=== PATIENT | male | born 1940 | race Caucasian/White ===

== ENCOUNTER → 2017-12-19 | Outpatient (CLI) | payer MEDICARE, OTHER ==
[~2017-12-19] MED LIST: ASPI81TA86 PO; ATOR40TA24 PO; ATR10 PO; AZIT500T47 PO; CA C1TAB85 PO; CETI-176 PO; CHOL100058 PO; CHOL200021 PO; ERG400 PO; FISH OIL1 CAP PO; FURO-45 PO; IBUP200C71 PO; LISI-349 PO; LISI-362 PO; LISI20TA29 PO; LOVA20TA99 PO; LOVA40TA89 PO; MECL-111 PO; MECL25TA9 PO; PANT40TA65 PO; PNEU0.5D3 IM; TAM4 PO; TAMS0.4C70 PO; TRIA10.8; UBID100C9 PO; VITA150T2 PO; VITA1CAP46 PO
== END ==
LOC: PT 10:30
PROVIDERS: ATTEND Emergency Medicine
DX: H90.3 Sensorineural hearing loss, bilateral (principal)
CPT/HCPCS: 92553

== ENCOUNTER → 2018-03-06 | Outpatient (CLI) | payer MEDICARE, OTHER ==
[~2018-03-06] MED LIST changes: +AMLO-96 PO; +IBUP-136 PO; -IBUP200C71 PO; +LISI-374 PO
== END ==
LOC: LAB 08:42
PROVIDERS: ATTEND Emergency Medicine
DX: I10 Essential (primary) hypertension (principal)
CPT/HCPCS: 36415; 82310; 82374; 82435; 82565; 82947; 84132; 84295; 84520

== ENCOUNTER 2018-04-28 09:50 | Emergency (ER) | payer MEDICARE, OTHER ==
--- NOTE | 2018-04-28 09:53 | ER Report ---
History and Physical Time Seen By : 09:53 HPI/ROS This is an 78-year-old male with a history of hypertension and hyperlipidemia. He was in his usual state of health until 0 9:15 this morning. He had eaten breakfast with his without issues, and as they finished her breakfast the patient seem to have problems using his right hand and arm. At that time his asked him to raise both his arms, and he could not raise his right arm. His describes shortly after the problems with his arms started, he "slumped over" the table and seem to have a brief period of confusion. When paramedics arrived he was unable to use his right arm. There were no other neurologic deficits according to the patient, his , and the paramedics. The weakness in his right arm did slightly improve in about to the emergency department. He went directly to the CT scan for stroke protocol. In the CT scanner, he had an approximate 60 seconds of expressive aphasia. He only had one episode of a facial. He continues to complain of weakness in his right arm and hand, but states it is improving. 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 He denies any chest pain or headache at the time of the incident or now. Remainder of the 14 system rev: Yes Allergies: Coded Allergies: No Known Drug Allergies (Verified , 01/13/18) verified by pt 01/13/2018 Home Meds Active Scripts Amlodipine Besylate (AMLODIPINE BESYLATE) 5 Mg Tablet, 1 TAB PO DAILY, #90 TAB 3 Refills Prov:KARLIE REYES MD 03/08/18 Lovastatin (LOVASTATIN) 40 Mg Tablet, 1 TAB PO QDAY, #90 TAB 4 Refills Prov:KARLIE REYES MD 07/26/17 Tamsulosin Hcl (TAMSULOSIN HCL) 0.4 Mg Cap.er.24h, 1 CAP PO DAILY, #90 TAB 3 Refills Prov:KARLIE REYES MD 07/26/17 Reported Medications Lisinopril (LISINOPRIL) 20 Mg Tablet, 20 MG PO QDAY, TAB 04/28/18 Cetirizine Hcl (ZYRTEC) 10 Mg Tablet, 1 TAB PO HS, TAB 01/13/18 Cholecalciferol (Vitamin D3) (VITAMIN D) 1,000 Unit Capsule, 1 CAP PO DAILY, CAPSULE 10/19/16 Aspirin (ASPIRIN EC) 81 Mg Tablet.dr, 1 TAB PO QDAY, TAB 08/04/15 Ibuprofen (IBUPROFEN) 200 Mg Capsule, 1 CAP PO Q6H PRN for PAIN, CAPSULE 04/01/14 Discontinued Scripts Lisinopril (LISINOPRIL) 40 Mg Tablet, 40 MG PO QDAY, #90 TAB 3 Refills Prov:ERICKARLIE Winkler MD 03/08/18 Reviewed Nurses Notes: Yes Old Medical Records Reviewed: Yes Hx Smoking: No Smoking Status: Never Smoker Hx Alcohol Use: Yes Constitutional Vital Sign - Last 24 Hours 04/28/18 10:07 Pulse 75 Resp 20 B/P (MAP) 154/68 Pulse Ox 94 O2 Delivery Room Air Physical Exam General Appearance: The patient is alert, has no immediate need for airway protection and no signs of toxicity. Eyes: Pupils equal and round no pallor or injection. ENT, Mouth: Mucous membranes are moist. Respiratory: There are no retractions, lungs are clear to auscultation. Cardiovascular: Regular rate and rhythm. Gastrointestinal: Abdomen is soft and non tender, no masses, bowel sounds normal. Neurological: Normal sensation throughout, 3 out of 5 strength in his right arm and hand. Normal strength other than right arm and hand. No drift. No ataxia. Normal speech. Skin: Warm and dry, no rashes. Neck is supple non tender. Extremities are nontender, nonswollen and have full range of motion. DIFFERENTIAL DIAGNOSIS: After history and physical exam differential diagnosis was considered for weakness including but not limited to electrolyte abnormality, depression, anxiety, CVA, spinal cord abnormality, and infectious causes. Medical Decision Making Data Points Result Diagram: 04/28/18 1005 04/28/18 1036 Laboratory Hematology Test 04/28/18 10:05 04/28/18 10:36 Red Blood Count 4.64 M/uL (4.00-5.60) Mean Corpuscular Volume 95.6 fL (80.0-96.0) Mean Corpuscular Hemoglobin 32.9 pg (26.0-33.0) Mean Corpuscular Hemoglobin Concent 34.4 g/dL (32.0-36.0) Red Cell Distribution Width 13.7 % (11.5-14.5) Mean Platelet Volume 7.5 fL (7.2-11.1) Neutrophils (%) (Auto) 63.3 % (39.4-72.5) Lymphocytes (%) (Auto) 25.4 % (17.6-49.6) Monocytes (%) (Auto) 7.5 % (4.1-12.4) Eosinophils (%) (Auto) 2.8 % (0.4-6.7) Basophils (%) (Auto) 1.0 % (0.3-1.4) Nucleated RBC Relative Count (auto) 0.1 /100WBC Neutrophils # (Auto) 4.2 K/uL (2.0-7.4) Lymphocytes # (Auto) 1.7 K/uL (1.3-3.6) Monocytes # (Auto) 0.5 K/uL (0.3-1.0) Eosinophils # (Auto) 0.2 K/uL (0.0-0.5) Basophils # (Auto) 0.1 K/uL (0.0-0.1) Nucleated RBC Absolute Count (auto) 0.01 K/uL Prothrombin Time 13.9 seconds (12.0-14.4) Prothromb Time International Ratio 1.07 Sodium Level 137 mmol/L (137-145) Potassium Level 4.0 mmol/L (3.5-5.0) Chloride Level 99 mmol/L (98-107) Carbon Dioxide Level 30 mmol/L (22-30) Blood Urea Nitrogen 12 mg/dl (9-21) Creatinine 1.00 mg/dl (0.66-1.25) Glomerular Filtration Rate Calc > 60.0 Random Glucose 126 mg/dl (75-110) Calcium Level 8.9 mg/dl (8.4-10.2) Total Bilirubin 0.5 mg/dl (0.2-1.3) Aspartate Amino Transf (AST/SGOT) 19 U/L (0-35) Alanine Aminotransferase (ALT/SGPT) 26 U/L (0-56) Alkaline Phosphatase 38 U/L (0-126) Total Protein 6.3 g/dl (6.3-8.2) Albumin 4.1 g/dl (3.5-5.0) Chemistry Test 04/28/18 10:05 04/28/18 10:36 White Blood Count 6.7 k/uL (4.5-11.0) Red Blood Count 4.64 M/uL (4.00-5.60) Hemoglobin 15.3 g/dL (14.0-18.0) Hematocrit 44.4 % (42.0-52.0) Mean Corpuscular Volume 95.6 fL (80.0-96.0) Mean Corpuscular Hemoglobin 32.9 pg (26.0-33.0) Mean Corpuscular Hemoglobin Concent 34.4 g/dL (32.0-36.0) Red Cell Distribution Width 13.7 % (11.5-14.5) Platelet Count 316 K/uL (150-450) Mean Platelet Volume 7.5 fL (7.2-11.1) Neutrophils (%) (Auto) 63.3 % (39.4-72.5) Lymphocytes (%) (Auto) 25.4 % (17.6-49.6) Monocytes (%) (Auto) 7.5 % (4.1-12.4) Eosinophils (%) (Auto) 2.8 % (0.4-6.7) Basophils (%) (Auto) 1.0 % (0.3-1.4) Nucleated RBC Relative Count (auto) 0.1 /100WBC Neutrophils # (Auto) 4.2 K/uL (2.0-7.4) Lymphocytes # (Auto) 1.7 K/uL (1.3-3.6) Monocytes # (Auto) 0.5 K/uL (0.3-1.0) Eosinophils # (Auto) 0.2 K/uL (0.0-0.5) Basophils # (Auto) 0.1 K/uL (0.0-0.1) Nucleated RBC Absolute Count (auto) 0.01 K/uL Prothrombin Time 13.9 seconds (12.0-14.4) Prothromb Time International Ratio 1.07 Glomerular Filtration Rate Calc > 60.0 Calcium Level 8.9 mg/dl (8.4-10.2) Total Bilirubin 0.5 mg/dl (0.2-1.3) Aspartate Amino Transf (AST/SGOT) 19 U/L (0-35) Alanine Aminotransferase (ALT/SGPT) 26 U/L (0-56) Alkaline Phosphatase 38 U/L (0-126) Total Protein 6.3 g/dl (6.3-8.2) Albumin 4.1 g/dl (3.5-5.0) Coagulation Test 04/28/18 10:36 Prothrombin Time 13.9 seconds Prothromb Time International Ratio 1.07 EKG/Imaging EKG Interpretation 12 lead EKG: Rhythm: normal sinus rhythm with first-degree AV block Crane: normal QRS: Left bundle-branch block ST segments: Nonspecific changes Imaging Results: CT scan of the head was obtained. The results of the study are no acute findings. The study was read by the radiologist. I viewed the images myself on the PACS system. 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 He presents to the emergency department 45 minutes after he had a sudden onset of right arm and right hand weakness. His witnessed the event. He had no other neurologic deficits at the time. He had a brief episode of expressive aphasia while getting a CT scan of his head which spontaneously resolved. He continued to have weakness in his right arm and specifically in his right hand. He was seen by a neurologist using telemedicine. 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 Neurologist, myself, and the patient think it reasonable, even given the risk benefit of TPA, that he receive TPA order to try to gain normal use of his right hand again. The risks of bleeding were discussed with the patient and his . The patient and his both agreed to the TPA treatment. He was given the TPA. He continues to have deficits in his right hand. He will be transferred to the neuro ICU at [facility]. Decision to Disposition Date: Apr 28, 2018 Decision to Disposition Time: 11:06 Critical Care Time I spent a total of 45 minutes of critical care time in obtaining history, performing a physical exam, bedside monitoring of interventions, collecting and interpreting tests and discussion with consultants but not including time spent performing procedures. Depart Departure Latest Vital Signs Vital Signs Date Time Temp Pulse Resp B/P (MAP) Pulse Ox O2 Delivery O2 Flow Rate FiO2 04/28/18 10:07 75 20 154/68 94 Room Air Impression: Primary Impression: CVA (cerebral vascular accident) Condition: Critical Disposition: XFER TO ACUTE CARE HOSPITAL Referrals: KARLIE REYES MD (PCP) Problem Qualifiers Primary Impression: CVA (cerebral vascular accident) CVA mechanism: unspecified Qualified Codes: I63.9 - Cerebral infarction, unspecified KHLOE JONES MD Apr 28, 2018 09:53
[2018-04-28] MEDS ORDERED: NS(*) 0.9% 1000 ML BAG 1,000 ML IV ONE (10:05)
[2018-04-28 10:14] LABS: PLATELET COUNT, AUTOMATED 316 K/uL (150-450)
[2018-04-28] MEDS ORDERED: LISI20TA29 PO (10:15)
--- NOTE | 2018-04-28 10:19 | RADIOLOGY IMAGING REPORT ---
FACILITY: [facility] PATIENT NAME: Jamey Parham : 1940 MR: [id number] V: [id number] EXAM DATE: ORDERING PHYSICIAN: KHLOE JONES TECHNOLOGIST: Location: [facility] Patient: Jamey Parham : 1940 Visit/Account:[id number] Date of Sevice: 04/28/2018 ADDENDUM #1 Addendum: Findings were discussed with the covering clinician at approximately 10:30. Report Dictated By: Link Jordan MD at 04/28/2018 10:43 AM Report E-Signed By: Link Jordan MD at 04/28/2018 10:43 AM ORIGINAL REPORT Head CT scan without contrast HISTORY: Right arm weakness COMPARISONS: January 12, 2016 report, images unavailable at the time of interpretation. TECHNIQUE: Non-contrast head CT was performed with sagittal and coronal reformations. One of the following dose optimization techniques was utilized in the performance of this exam: autom ated exposure control; adjustment of the mA and/or kV according to patient size; or use of iterative reconstruction technique. Specific details can be referenced in the facility's radiology CT exam ope rational policy. FINDINGS: There is no intracranial hemorrhage, hydrocephalus or midline shift. The basal cisterns, odell-white differentiation, and convexity sulci are maintained. Normal orbital soft tissues. Minimal unchanged periventricular white matter hypoattenuation. Clear mastoid air cells. Small left maxillary sinus mucous retention cyst and mild left maxillary si nus mucosal thickening. Nearly completely opacified left frontal sinus. No acute osseous abnormalit y. IMPRESSION: No acute intracranial abnormality. Chronic nearly completely opacified left frontal sinus as before. Minimal unchanged chronic small vessel ischemic change. Report Dictated By: Link Jordan MD at 04/28/2018 10:09 AM Report E-Signed By: Link Jordan MD at 04/28/2018 10:15 AM [id number]
[2018-04-28] MEDS ORDERED: ALTEPLASE RECOMB 100 MG/100 ML VIAL IV ONE (10:30)
[2018-04-28 10:51] LABS: INR 1.07
[2018-04-28] MEDS ORDERED: LABETALOL HCL 100 MG/20ML VIAL IVP ONE (10:55)
[2018-04-28] MEDS ORDERED: IOPAMIDOL 76% 75 ML INFUS BTL 0 ML ONE (11:10)
[2018-04-28] MEDS ORDERED: NS(*) 0.9% 50 ML BAG 0 ML ONE (11:10)
[2018-04-28 11:20] VITALS: BP 168/98
--- NOTE | 2018-04-29 09:29 | EKG ---
FACILITY: [facility] [place] PATIENT NAME: ANGELA ISAAC : [id number] MR: [id number] V: [id number] EXAM DATE: ORDERING PHYSICIAN: KHLOE JONES TECHNOLOGIST: Test Reason : STROKE Blood Pressure : / mmHG Vent. Rate : 074 BPM Atrial Rate : 074 BPM P-R Int : 228 ms QRS Dur : 160 ms QT Int : 444 ms P-R-T Axes : 063 045 223 degrees QTc Int : 492 ms Sinus rhythm with 1st degree AV block Left bundle branch block Abnormal ECG When compared with ECG of 08-JUL-2014 08:45, HI interval has increased Left bundle branch block is now present Confirmed by Ras Spencer ([id number]) on 04/29/2018 1:42:44 PM Referred By: Confirmed By:Ras Ruvalcaba
== END 2018-04-28 11:45 | disposition short-term general hospital (02) ==
LOC: ER 09:52
DX: I63.9 Cerebral infarction, unspecified (principal)
CPT/HCPCS: 36415; 70450; 85025; 85610; 93005; 96361; 96374; J2997; J3490; J7030; 82040; 82247; 82310; 82374; 82435; 82565; 82947; 84075; 84132; 84155; 84295; 84450; 84460; 84520; 99291; J7050; Q9967

== ENCOUNTER → 2018-04-28 | Outpatient (REF) ==
[~2018-04-28] MED LIST changes: +AMLO-111 PO; -AMLO-96 PO
== END ==
LOC: AMB 10:44
PROVIDERS: ATTEND Nurse Practitioner
DX: I63.9 Cerebral infarction, unspecified (principal)

== ENCOUNTER → 2018-04-28 | Outpatient (CLI) | payer MEDICARE, OTHER | LOC: AMB 09:34 | PROVIDERS: ATTEND Nurse Practitioner | DX: G81.91 Hemiplegia, unspecified affecting right dominant side (principal); R61 Generalized hyperhidrosis; R53.1 Weakness | CPT/HCPCS: A0425; A0427 ==

== ENCOUNTER 2018-05-25 13:13 | Emergency (ER) | payer MEDICARE, OTHER ==
--- NOTE | 2018-05-25 13:16 | ER Report ---
History and Physical Time Seen By MD: 13:16 (BRAYDEN LEE MD) HPI/ROS CHIEF COMPLAINT: Not feeling well HISTORY OF PRESENT ILLNESS: This 78-year-old male who had a CVA and received TPA on 04/28/2018. Patient states over the last 2 days he is felt weak has some difficulty with walking but denies any focal neurological weakness. states that his speech appears normal. His muscle strength is normal. Patient had very minimal residual symptoms from the stroke on April 28. Patient is currently wearing a Holter monitor over the last 10 days to look for any dysrhythmias. He is supposed to take the Holter monitor off tomorrow. Headache. He denies chest pain or shortness of breath. He does feel some ringing in his ears bilaterally. And feels as if his tongue goes numb from time to time. States that he feels as if he is off balance with walking. REVIEW OF SYSTEMS: Constitutional: No fever, no chills. Eyes: No discharge. ENT: No sore throat. Cardiovascular: No chest pain, no palpitations. Respiratory: No cough, no shortness of breath. Gastrointestinal: No abdominal pain, no vomiting. Genitourinary: No hematuria. Musculoskeletal: No back pain. Skin: No rashes. Neurological: No headache, generalized weakness (BRAYDEN LEE MD) Allergies: Coded Allergies: No Known Drug Allergies (Verified , 05/25/18) verified by pt 01/13/2018 Home Meds Active Scripts Meclizine Hcl (MECLIZINE HCL) 25 Mg Tablet, 25 MG PO Q6-8H PRN for DIZZINESS, #30 TAB Prov:SILKE WATT DO 05/25/18 Amlodipine Besylate (AMLODIPINE BESYLATE) 5 Mg Tablet, 1 TAB PO DAILY, #90 TAB 3 Refills Prov:KARLIE REYES MD 03/08/18 Lovastatin (LOVASTATIN) 40 Mg Tablet, 1 TAB PO QDAY, #90 TAB 4 Refills Prov:KARLIE REYES MD 07/26/17 Tamsulosin Hcl (TAMSULOSIN HCL) 0.4 Mg Cap.er.24h, 1 CAP PO DAILY, #90 TAB 3 Re fills Prov:KARLIE REYES MD 07/26/17 Reported Medications Lisinopril (LISINOPRIL) 40 Mg Tablet, 40 MG PO QDAY, TAB 05/25/18 Clopidogrel Bisulfate (PLAVIX) 75 Mg Tablet, 1 TAB PO QDAY, TAB 05/25/18 Cetirizine Hcl (ZYRTEC) 10 Mg Tablet, 1 TAB PO HS, TAB 01/13/18 Cholecalciferol (Vitamin D3) (VITAMIN D) 1,000 Unit Capsule, 1 CAP PO DAILY, CAPSULE 10/19/16 Aspirin (ASPIRIN EC) 81 Mg Tablet.dr, 1 TAB PO QDAY, TAB 08/04/15 Ibuprofen (IBUPROFEN) 200 Mg Capsule, 1 CAP PO Q6H PRN for PAIN, CAPSULE 04/01/14 Discontinued Reported Medications Lisinopril (LISINOPRIL) 20 Mg Tablet, 20 MG PO QDAY, TAB 04/28/18 Past Medical/Surgical History Past medical history for CVA in April 2018, history of hyperlipidemia, hypertension, venous insufficiency, prostate cancer, skin cancer, shingles, gastroesophageal reflux disease (BRAYDEN LEE MD) Hx Smoking: No Smoking Status: Never Smoker Hx Substance Use Disorder: No Hx Alcohol Use: Yes (BRAYDEN LEE MD) Constitutional Vital Sign - Last 24 Hours 05/25/18 05/25/18 05/25/18 05/25/18 13:13 13:17 13:19 13:28 Temp 97.7 Pulse ??? 80 77 Resp 16 7 B/P (MAP) 186/101 186/101 (129) Pulse Ox 98 98 O2 Delivery Room Air 05/25/18 05/25/18 05/25/18 05/25/18 13:30 13:43 13:48 13:58 Pulse ??? 72 Resp 15 B/P (MAP) 197/101 (133) 176/95 (122) Pulse Ox 97 05/25/18 05/25/18 05/25/18 14:00 14:13 14:15 Pulse 65 Resp 18 B/P (MAP) 169/100 (123) 168/82 (110) Pulse Ox 93 (LAURORA,SILKE V DO) Physical Exam General/Constitutional: Patient is awake, alert, nontoxic and in no acute respiratory distress. Head: Normocephalic and atraumatic. Eyes: Conjunctival clear, Pupils are equal and reactive to light. Extraocular muscles are intact and symmetrical. Sclera are clear and anicteric. Ears: Wears hearing aids Nares: No rhinorrhea or bleeding. Turbinates are pink and moist. Oropharyngeal: Mucous membranes are moist. There is no pharyngeal erythema or exudate. There are no palatal petechiae. Uvula is midline and symmetrical. Neck: Supple, no adenopathy. Cardiovascular: Heart is regular rate and rhythm without audible murmurs, rubs or gallops. Pulmonary: Lungs are clear to auscultation bilaterally. There are no wheezes, rales, or rhonchi. Chest rise is symmetrical Abdomen: Soft, nontender, no guarding or peritoneal signs. Extremities: No gross deformities, No peripheral cyanosis. Able to move all 4 extremities she has 5 out of 5 upper and lower extremity strength that is symmetrical.. Neuro: Alert and oriented X3, Cranial nerves 2 thru 12 are intact and symmetrical. Patient has normal gait. Skin: No rashes, skin is warm dry and well perfused. NIH Stroke Scale: 0 Level of consciousness: Alert -0 Answers both questions correctly-0 Performs both tasks correctly-0 Best Gaze: Normal-0 Visual: No visual loss-0 Facial Palsy: Normal, symmetrical movements-0 Motor Left Arm: No drift for 10 seconds-0 Motor Right Arm: No drift for 10 seconds-0 Motor Left Leg: No drift for 5 seconds-0 Motor Right Leg: No drift for 5 seconds-0 Limb Ataxia: Absent-0 Sensory: Normal, no sensory loss-0 Best Language: Normal, no aphasia-0 Dysarthria: Normal-0 Extinction and Inattention: No abnormality-0 (BRAYDEN LEE MD) Medical Decision Making Data Points Result Diagram: 05/25/18 1327 05/25/18 1327 Laboratory Hematology Test 05/25/18 13:27 05/25/18 15:05 Red Blood Count 4.89 M/uL (4.00-5.60) Mean Corpuscular Volume 96.4 fL (80.0-96.0) Mean Corpuscular Hemoglobin 32.8 pg (26.0-33.0) Mean Corpuscular Hemoglobin Concent 34.1 g/dL (32.0-36.0) Red Cell Distribution Width 13.7 % (11.5-14.5) Mean Platelet Volume 7.6 fL (7.2-11.1) Neutrophils (%) (Auto) 66.9 % (39.4-72.5) Lymphocytes (%) (Auto) 21.4 % (17.6-49.6) Monocytes (%) (Auto) 8.8 % (4.1-12.4) Eosinophils (%) (Auto) 2.3 % (0.4-6.7) Basophils (%) (Auto) 0.6 % (0.3-1.4) Nucleated RBC Relative Count (auto) 0.0 /100WBC Neutrophils # (Auto) 4.9 K/uL (2.0-7.4) Lymphocytes # (Auto) 1.6 K/uL (1.3-3.6) Monocytes # (Auto) 0.6 K/uL (0.3-1.0) Eosinophils # (Auto) 0.2 K/uL (0.0-0.5) Basophils # (Auto) 0.0 K/uL (0.0-0.1) Nucleated RBC Absolute Count (auto) 0.00 K/uL Sodium Level 134 mmol/L (137-145) Potassium Level 4.1 mmol/L (3.5-5.0) Chloride Level 96 mmol/L (98-107) Carbon Dioxide Level 29 mmol/L (22-30) Blood Urea Nitrogen 13 mg/dl (9-21) Creatinine 0.90 mg/dl (0.66-1.25) Glomerular Filtration Rate Calc > 60.0 Random Glucose 133 mg/dl (75-110) Calcium Level 9.3 mg/dl (8.4-10.2) Total Bilirubin 1.0 mg/dl (0.2-1.3) Aspartate Amino Transf (AST/SGOT) 27 U/L (0-35) Alanine Aminotransferase (ALT/SGPT) 28 U/L (0-56) Alkaline Phosphatase 42 U/L (0-126) Troponin I < 0.012 ng/ml Total Protein 7.1 g/dl (6.3-8.2) Albumin 4.3 g/dl (3.5-5.0) Urine Color Straw Urine Clarity Clear Urine pH 6.0 pH (4.8-9.5) Urine Specific [place] 1.004 Urine Protein Negative mg/dL (NEGATIVE) Urine Glucose (UA) Negative mg/dL (NEGATIVE) Urine Ketones Negative mg/dL (NEGATIVE) Urine Blood Negative (NEGATIVE) Urine Nitrite Negative (NEGATIVE) Urine Bilirubin Negative (NEGATIVE) Urine Urobilinogen Negative mg/dL (0.2-1.9) Urine Leukocyte Esterase Negative (NEGATIVE) Urine RBC None /HPF (0-2/HPF) Urine WBC <1 /HPF (0-5/HPF) Urine Squamous Epithelial Cells None /LPF (</=FEW) Urine Bacteria Negative /HPF (NONE-FEW) Urine Mucus None /HPF (NONE-FEW) Chemistry Test 05/25/18 13:27 05/25/18 15:05 White Blood Count 7.4 k/uL (4.5-11.0) Red Blood Count 4.89 M/uL (4.00-5.60) Hemoglobin 16.1 g/dL (14.0-18.0) Hematocrit 47.2 % (42.0-52.0) Mean Corpuscular Volume 96.4 fL (80.0-96.0) Mean Corpuscular Hemoglobin 32.8 pg (26.0-33.0) Mean Corpuscular Hemoglobin Concent 34.1 g/dL (32.0-36.0) Red Cell Distribution Width 13.7 % (11.5-14.5) Platelet Count 312 K/uL (150-450) Mean Platelet Volume 7.6 fL (7.2-11.1) Neutrophils (%) (Auto) 66.9 % (39.4-72.5) Lymphocytes (%) (Auto) 21.4 % (17.6-49.6) Monocytes (%) (Auto) 8.8 % (4.1-12.4) Eosinophils (%) (Auto) 2.3 % (0.4-6.7) Basophils (%) (Auto) 0.6 % (0.3-1.4) Nucleated RBC Relative Count (auto) 0.0 /100WBC Neutrophils # (Auto) 4.9 K/uL (2.0-7.4) Lymphocytes # (Auto) 1.6 K/uL (1.3-3.6) Monocytes # (Auto) 0.6 K/uL (0.3-1.0) Eosinophils # (Auto) 0.2 K/uL (0.0-0.5) Basophils # (Auto) 0.0 K/uL (0.0-0.1) Nucleated RBC Absolute Count (auto) 0.00 K/uL Glomerular Filtration Rate Calc > 60.0 Calcium Level 9.3 mg/dl (8.4-10.2) Total Bilirubin 1.0 mg/dl (0.2-1.3) Aspartate Amino Transf (AST/SGOT) 27 U/L (0-35) Alanine Aminotransferase (ALT/SGPT) 28 U/L (0-56) Alkaline Phosphatase 42 U/L (0-126) Troponin I < 0.012 ng/ml Total Protein 7.1 g/dl (6.3-8.2) Albumin 4.3 g/dl (3.5-5.0) Urine Color Straw Urine Clarity Clear Urine pH 6.0 pH (4.8-9.5) Urine Specific [place] 1.004 Urine Protein Negative mg/dL (NEGATIVE) Urine Glucose (UA) Negative mg/dL (NEGATIVE) Urine Ketones Negative mg/dL (NEGATIVE) Urine Blood Negative (NEGATIVE) Urine Nitrite Negative (NEGATIVE) Urine Bilirubin Negative (NEGATIVE) Urine Urobilinogen Negative mg/dL (0.2-1.9) Urine Leukocyte Esterase Negative (NEGATIVE) Urine RBC None /HPF (0-2/HPF) Urine WBC <1 /HPF (0-5/HPF) Urine Squamous Epithelial Cells None /LPF (</=FEW) Urine Bacteria Negative /HPF (NONE-FEW) Urine Mucus None /HPF (NONE-FEW) Urinalysis Test 05/25/18 15:05 Urine Color Straw Urine Clarity Clear Urine pH 6.0 pH (4.8-9.5) Urine Specific [place] 1.004 Urine Protein Negative mg/dL (NEGATIVE) Urine Glucose (UA) Negative mg/dL (NEGATIVE) Urine Ketones Negative mg/dL (NEGATIVE) Urine Blood Negative (NEGATIVE) Urine Nitrite Negative (NEGATIVE) Urine Bilirubin Negative (NEGATIVE) Urine Urobilinogen Negative mg/dL (0.2-1.9) Urine Leukocyte Esterase Negative (NEGATIVE) Urine RBC None /HPF (0-2/HPF) Urine WBC <1 /HPF (0-5/HPF) Urine Squamous Epithelial Cells None /LPF (</=FEW) Urine Bacteria Negative /HPF (NONE-FEW) Urine Mucus None /HPF (NONE-FEW) (SILKE WATT DO) EKG/Imaging EKG Interpretation EKG shows a sinus rhythm with first-degree AV block and left bundle branch block. There is occasional PVCs. This was compared to an EKG from 04/28/2018 and it is essentially unchanged. Monitor Interpretation: Normal Sinus Rhythm Imaging [place] [facility] [place] Jamey Parham : 1940 MR: [id number] V: [id number] EXAM DATE: [id number] ORDERING PHYSICIAN: BRAYDEN LEE TECHNOLOGIST: Location: [facility] Patient: Jamey Parham : 1940 Visit/Account:[id number] Date of Sevice: 05/25/2018 EXAMINATION: CT head without IV contrast HISTORY: Dizziness. TECHNIQUE: Axial CT images of the head were obtained from the vertex to the skull base without IV contrast, with coronal and sagittal 2D reconstructed images. One of the following dose optimization techniques was utilized in the performance of this exam: Automated exposure control; adjustment of the mA an d/or kV according to the patient's size; or use of an iterative reconstruction technique. Specific details can be referenced in the facility's radiology CT exam operational policy. COMPARISON: 04/28/2018. FINDINGS: There is mild age-appropriate parenchymal volume loss. Intracranial vascular c alcifications No CT evidence of intracranial hemorrhage, mass lesion, or acute infarct. No midline shift or extra-axial fluid collections. Duque-white differentiation is maintained. Stable chronic opacification of the left frontal sinus. Mild mucosal thickening in the left maxillary sinus. The paranasal sinuses and mastoid air cells are otherwise unopacified. No acute osseous findings. IMPRESSION: 1. No CT evidence of acute intracranial pathology. 2. Mild age-appropriate parenchymal volume loss. 3. Stable sinus inflammatory changes with chronic opacification of the left frontal sinus. Report Dictated By: Wei Villalpando MD at 05/25/2018 1:52 PM Report E-Signed By: Wei Villalpando MD at 05/25/2018 1:57 PM WSN:[id number] (BRAYDEN LEE MD) ED Course/Re-evaluation ED Course 05/25/2018 1:39:45 pm vision with generalized weakness. No focal motor weakness is noted. No dysarthria no aphasia. The weakness has been present for approximately 2 days. Patient is taking all his medications as directed. Plan at this time will be to perform a noncontrast CT of the head we will do a medical workup. If CT is negative will consider possible MRI. Decision to Disposition Date: May 25, 2018 Decision to Disposition Time: 18:00 (BRAYDEN LEE MD) ED Course 05/25/2018 4:12:36 pm Radiologist just called with MRI results, + acute stroke 05/25/2018 4:22:34 pm Spoke with family and repeated stroke score. Pt feeling better. no longer dizzy. states that he saw Dr. Dorsey, neurology and is on plavix for next 30 days. Will call [facility] to discuss case. Dr. Graham n euorology should be calling back. 05/25/2018 4:38:37 pm Spoke with neurology, Dr. Chip Graham, and reviewed his MRI results. I explained the areas of acute embolic strokes. He did not feel pt needs admission or transfer since pts symptoms are better. He did feel pt needs to add full aspirin to his plavix and the holter should be kept on him longer. will speak with pt and family. 05/25/2018 4:52:13 pm Pts event monitor was taken off for MRI. Cardiopulmonary are unable to put that back on. Pt states it was due to come off today and be shipped to cardiology. Has an appt with cardiology here on Jun 13 to review pts event monitor. Our hospital does not currently have any monitors and will have an 48 hour holter available tomorrow at 8am. will have pt come for holter in am. PT feels comfortable going home and not being admitted. "they did everything at [facility] last month". I have concerns with pt continuing to have punctate infarcts. PT is told to return immediately for any concerns. Pt asked if he can go tonight to rec center to lift weights. I explained I prefer he does walking but limit exertion until he is told he can go back to full activity by neurology and cardiology. Decision to Disposition Date: May 25, 2018 Decision to Disposition Time: 17:13 (SILKE WATT DO) Depart Departure Latest Vital Signs Vital Signs Date Time Temp Pulse Resp B/P (MAP) Pulse Ox O2 Delivery O2 Flow Rate FiO2 05/25/18 14:15 168/82 (110) 05/25/18 14:13 65 18 93 05/25/18 13:17 97.7 Room Air (SILKE WATT DO) Impression: Primary Impression: CVA (cerebral vascular accident) Condition: Improved Disposition: HOME OR SELF-CARE Referrals: KARLIE REYES MD (PCP) New Scripts Meclizine Hcl (MECLIZINE HCL) 25 Mg Tablet 25 MG PO Q6-8H PRN for DIZZINESS, #30 TAB Prov: SILKE WATT DO 05/25/18 Departure Forms: ER Transition Record, Medications Reconciliation, Patient Portal Information Additional Instructions: Your MRI today did show multiple areas of of punctate acute strokes. I spoke with Dr. Chip Graham, neurology at [facility]. He would like for you to increase your daily aspirin to 325mg. Come back tomorrow at 8am to picking table worker a holter monitor that you will have for 48 hours. Go to the front line leader and let them know you have an appointment with "cardiopulmonary" for a holter and they will direct you to the location. Mail back your previous monitor tomorrow to cardiology. Meclizine one every 6 hours as needed for dizziness. Please return immediately for any worsening symptoms. Problem Qualifiers Primary Impression: CVA (cerebral vascular accident) CVA mechanism: unspecified Qualified Codes: I63.9 - Cerebral infarction, unspecified BRAYDEN LEE MD May 25, 2018 13:16 SILKE WATT DO May 25, 2018 16:12
[2018-05-25] MEDS ORDERED: CLOP75TA43 PO (13:23)
--- NOTE | 2018-05-25 13:31 | EKG ---
[place] [facility] [place] NAME: ANGELA ISAAC : [id number] MR: [id number] V: [id number] EXAM DATE: ORDERING PHYSICIAN: BRAYDEN LEE TECHNOLOGIST: MIRELLA Euceda Reason : DIZZY Blood Pressure : / mmHG Vent. Rate : 070 BPM Atrial Rate : 070 BPM P-R Int : 222 ms QRS Dur : 162 ms QT Int : 442 ms P-R-T Axes : 046 038 033 degrees QTc Int : 477 ms Sinus rhythm with 1st degree AV block with occasional premature ventricular complexes Left bundle branch block Abnormal ECG When compared with ECG of 28-APR-2018 10:10, premature ventricular complexes are now present Confirmed by PROMISE GUNN ([id number]) on 05/25/2018 10:29:01 PM Referred By: ROSA Confirmed By:PROMISE GUNN
[2018-05-25 13:38] LABS: PLATELET COUNT, AUTOMATED 312 K/uL (150-450)
[2018-05-25] MEDS ORDERED: MECLIZINE HCL 25 MG TAB PO ONE (13:40)
[2018-05-25] MEDS ORDERED: NS(*) 0.9% 500 ML BAG 500 ML IV ONE (13:40)
[2018-05-25] MEDS ORDERED: LISI-374 PO (13:44)
--- NOTE | 2018-05-25 14:01 | RADIOLOGY IMAGING REPORT ---
FACILITY: [facility] - [place] PATIENT NAME: Jamey Parham : 1940 MR: [id number] V: [id number] EXAM DATE: ORDERING PHYSICIAN: BRAYDEN LEE TECHNOLOGIST: Location: [facility] [place] Patient: Jamey Parham : 1940 Visit/Account:[id number] Date of Sevice: 05/25/2018 EXAMINATION: CT head without IV contrast HISTORY: Dizziness. TECHNIQUE: Axial CT images of the head were obtained from the vertex to the skull base without IV c ontrast, with coronal and sagittal 2D reconstructed images. One of the following dose optimization techniques was utilized in the performance of this exam: Autom ated exposure control; adjustment of the mA and/or kV according to the patient's size; or use of an i terative reconstruction technique. Specific details can be referenced in the facility's radiology C T exam operational policy. COMPARISON: 04/28/2018. FINDINGS: There is mild age-appropriate parenchymal volume loss. Intracranial vascular calcifications No CT ev idence of intracranial hemorrhage, mass lesion, or acute infarct. No midline shift or extra-axial flu id collections. Duque-white differentiation is maintained. Stable chronic opacification of the left frontal sinus. Mild mucosal thickening in the left maxillar y sinus. The paranasal sinuses and mastoid air cells are otherwise unopacified. No acute osseous fi ndings. IMPRESSION: 1. No CT evidence of acute intracranial pathology. 2. Mild age-appropriate parenchymal volume loss. 3. Stable sinus inflammatory changes with chronic opacification of the left frontal sinus. Report Dictated By: Wei Villalpando MD at 05/25/2018 1:52 PM Report E-Signed By: Wei Villalpando MD at 05/25/2018 1:57 PM WSN:[id number]
--- NOTE | 2018-05-25 14:47 | RADIOLOGY IMAGING REPORT ---
FACILITY: [facility] - [place] PATIENT NAME: Jamey Parham : 1940 MR: [id number] V: [id number] EXAM DATE: ORDERING PHYSICIAN: BRAYDEN LEE TECHNOLOGIST: Location: [facility] Patient: Jamey Parham : 1940 Visit/Account:[id number] Date of Sevice: 05/25/2018 CHEST SINGLE AP Additional pertinent History: SOB COMPARISON STUDIES: 12/19/2014 FINDINGS: Support lines and catheters: There is a battery pack overlying the left mid chest Lungs and Pleura: Mild hyperinflated lung bhatt with no infiltrates or consolidations. No parenchym al mass lesions are seen. There are no effusions Heart and vasculature: Negative. Anne and Mediastinum: Negative. Bones and Chest wall: Negative. Upper Abdomen: Negative. IMPRESSION: 1. Negative chest for acute cardiopulmonary disease. Report Dictated By: Clinton Reyes MD at 05/25/2018 2:42 PM Report E-Signed By: Clinton Reyes MD at 05/25/2018 2:44 PM WSN:[email or web address]
[2018-05-25] MEDS ORDERED: LORazepam 2 MG/ML VIAL IVP ONE (15:05)
--- NOTE | 2018-05-25 16:15 | RADIOLOGY IMAGING REPORT ---
FACILITY: [facility] - [place] PATIENT NAME: Jamey Parham : 1940 MR: [id number] V: [id number] EXAM DATE: ORDERING PHYSICIAN: BRAYDEN LEE TECHNOLOGIST: [place] [facility] [place]amey [place] : 1940 Visit/Account:[id number] Date of Sevice: 05/25/2018 EXAMINATION: MRI brain without IV contrast HISTORY: Dizziness. COMPARISON: CT head from 05/25/2018. TECHNIQUE: Multi-planar, multi-sequence brain MRI was performed without IV contrast. FINDINGS: Brain volume: Normal. Sagittal midline structures: Normal. Ventricles: Normal. Acute ischemic changes: There are scattered punctate areas of diffusion restriction with correspondi ng decreased ADC map signal in the anterior limb of the left internal capsule, peripherally in the ri ght occipital lobe, and in the right cerebellum and 2 areas in the left cerebellum. These areas demon strate T2/FLAIR hyperintensity, except for one lesion in the left cerebellum. No associated mass effe ct. Hemorrhage: No acute intracranial hemorrhage. Masses/edema: None. Duque-white: Negative. White matter: A few T2/FLAIR hyperintensities in the deep white matter bilaterally. Vessels: Normal. Extra-axial: None. Calvarium/scalp: Negative. Skull base: Negative. Visualized sinuses/orbits: Patchy mucosal thickening in the paranasal sinuses, worst in the left fro ntal sinus which is completely opacified. Visualized upper neck: Negative. IMPRESSION: 1. A few punctate acute infarcts bilaterally, highly suspicious for embolic infarcts. The infarcts ar e over 6 hours in age, except for 1 infarct in the left cerebellum which may be less than 6 hours in age. 2. No acute hemorrhage or intracranial mass lesion. 3. Mild nonspecific white matter disease is suspicious for chronic small vessel ischemia. 4. Patchy inflammation of the paranasal sinuses, worst in the left frontal sinus. These findings were discussed with Dr. Bansal at 05/25/2018 4:05 PM. Report Dictated By: Pearl Hammond MD at 05/25/2018 3:57 PM Report E-Signed By: Pearl Hammond MD at 05/25/2018 4:09 PM WSN:[id number]
[2018-05-25] MEDS ORDERED: MECL25TA9 PO (17:11)
[2018-05-25 17:15] VITALS: BP 144/76
[2018-05-25] MEDS ORDERED: ASPIRIN 325 MG TAB PO ONE (17:15)
== END 2018-05-25 17:16 | disposition home or self-care (01) ==
LOC: ER 13:18
DX: I63.9 Cerebral infarction, unspecified (principal); E78.5 Hyperlipidemia, unspecified; I10 Essential (primary) hypertension
CPT/HCPCS: 36416; 70450; 70551; 71045; 81001; 82948; 84484; 85025; 93005; 96361; 96374; 99285; A9270; J2060; J7040; J8597; 82040; 82247; 82310; 82374; 82435; 82565; 82947; 84075; 84132; 84155; 84295; 84450; 84460; 84520

== ENCOUNTER → 2018-05-26 | Outpatient (CLI) | payer MEDICARE, OTHER ==
[~2018-05-26] MED LIST changes: +CLOP75TA43 PO
--- NOTE | 2018-05-28 16:41 | RT HOLTER TEST ---
FACILITY: [facility] - [place] PATIENT NAME: ANGELA ISAAC : [id number] MR: [id number] V: [id number] EXAM DATE: ORDERING PHYSICIAN: SILKE WATT TECHNOLOGIST: Rajinder Hook-up date: 2018-05-26 08:27:00 Duration: 47:58:00 Test Indications: IRREG HEART RATE, STROKE Medications: SEE CHART [id number] QRS complexes 297 Ventricular ectopics which represent <1 % of total QRS comp. 54 Supraventricular ectopics which represent <1 % of total QRS comp. * Paced QRS complexes which represent % of total QRS comp. VENTRICULAR ECTOPY 293 Isolated 0 Bigeminal Cycles 2 Couplets 0 Runs 0 Beats in Runs * Beats LONGEST at * BPM at :: -- * Beats FASTEST at * BPM at :: -- SUPRAVENTRICULAR ECTOPY 54 Isolated 0 Couplets 0 Runs 0 Beats in Runs * Beats LONGEST at * BPM at :: -- * Beats FASTEST at * BPM at :: -- HEART RATES 51 MIN at 03:03:53 2018-05-28 67 AVG 105 MAX at 18:32:47 2018-05-27 LONGEST RR 1.768 secs at 03:03:52 2018-05-28 S-T LEVELS Channel 1 -12.800 mm MIN at 08:27:00 2018-05-2612.800 mm MAX at 08:27:00 2018-05-26 Channel 2 -12.800 mm MIN at 08:27:00 2018-05-2612.800 mm MAX at 08:27:00 2018-05-26 Channel 3 -12.800 mm MIN at 08:27:00 2018-05-2612.800 mm MAX at 08:27:00 2018-05-26 Primarily NSR with apparent likely LBBB Occasional, generally isolated PVC's, rare couplet PVC. Frequency recorded would not likely be interpreted as irregular heart rate. No noted atrial fibrillation or flutter. Period of mild bradycardia. Confirmed by Ras Spencer ([id number]) on 05/28/2018 4:41:14 PM Referred By: BLANCA Overread By: Ras Ruvalcaba
== END ==
LOC: RESP 07:59
PROVIDERS: ATTEND Emergency Medicine
DX: I63.9 Cerebral infarction, unspecified (principal)
CPT/HCPCS: 93225; 93226

== ENCOUNTER → 2018-05-31 | Outpatient (CLI) | payer MEDICARE, OTHER ==
[~2018-05-31] MED LIST changes: +APIX5TAB PO; +DEXL60CA6 PO; +LOR1 PO; +WARF-1 PO
== END ==
LOC: LAB 14:07
PROVIDERS: ATTEND Emergency Medicine
DX: I63.9 Cerebral infarction, unspecified (principal); M79.10 Myalgia, unspecified site
CPT/HCPCS: 36415; 82306; 82607

== ENCOUNTER → 2018-06-02 | Outpatient (CLI) | payer MEDICARE, OTHER ==
[~2018-06-02] MED LIST changes: +GADOBENATE 529MG/1ML 15ML VIAL IVP ONE; +NS(*) 0.9% 50 ML BAG 50 ML ONE
[2018-06-02 08:59] LABS: INR 1.05
--- NOTE | 2018-06-02 11:26 | RADIOLOGY IMAGING REPORT ---
FACILITY: [facility] - [place] PATIENT NAME: Jamey Parham : 1940 MR: [id number] V: [id number] EXAM DATE: ORDERING PHYSICIAN: KARLIE REYES TECHNOLOGIST: Location: [facility] - [place] Patient: Jamey Parham : 1940 Visit/Account:[id number] Date of Sevice: 06/02/2018 MRA NECK W W/O CONTRAST COMPARISON: None ADDITIONAL PERTINENT HISTORY: CVA Technique: 3-D [id number] imaging and contrasted enhanced MRA was performed of the neck arterial vasculature with multiple reformatted images obtained off the axial source data. Study was performed before and after the IV administration of gadolinium. Degrees of stenosis of the cervical internal carotid arteries are based on NASCET criteria. CONTRAST: 15 ml of Multihance. FINDINGS: Vascular variants: None Great vessel origins/aortic arch: Negative Vertebral arteries: Negative Common carotid arteries: Negative Common carotid artery bifurcations: Negative Cervical internal carotid arteries: Negative Visualized intracranial arterial anatomy: Negative Surrounding soft tissues: Negative Visualized osseous structures: Negative IMPRESSION: Normal MRA of the neck. Report Dictated By: Devon Teixeira MD at 06/02/2018 11:14 AM Report E-Signed By: Devon Teixeira MD at 06/02/2018 11:21 AM WSN:[id number]
== END ==
LOC: MRI 07:06
PROVIDERS: ATTEND Emergency Medicine
DX: Z51.81 Encounter for therapeutic drug level monitoring (principal); I63.9 Cerebral infarction, unspecified
CPT/HCPCS: 36415; 70549; 85610; A9577; J7050

== ENCOUNTER → 2018-06-04 | Outpatient (CLI) | payer MEDICARE, OTHER ==
[~2018-06-04] MED LIST changes: -GADOBENATE 529MG/1ML 15ML VIAL IVP ONE; -NS(*) 0.9% 50 ML BAG 50 ML ONE
[2018-06-04 08:57] LABS: INR 1.29
== END ==
LOC: LAB 08:33
PROVIDERS: ATTEND Emergency Medicine
DX: Z51.81 Encounter for therapeutic drug level monitoring (principal); Z79.01 Long term (current) use of anticoagulants; I63.9 Cerebral infarction, unspecified
CPT/HCPCS: 36415; 85610

== ENCOUNTER → 2018-06-09 | Outpatient (CLI) | payer MEDICARE, OTHER ==
[2018-06-09 09:01] LABS: INR 5.46
== END ==
LOC: LAB 08:31
PROVIDERS: ATTEND Emergency Medicine
DX: I63.9 Cerebral infarction, unspecified (principal); Z51.81 Encounter for therapeutic drug level monitoring
CPT/HCPCS: 36415; 85610

== ENCOUNTER → 2018-06-10 | Outpatient (CLI) | payer MEDICARE, OTHER | LOC: RESP 19:57 | PROVIDERS: ATTEND Emergency Medicine | DX: G47.30 Sleep apnea, unspecified (principal); G47.36 Sleep related hypoventilation in conditions classified elsewhere; G47.61 Periodic limb movement disorder ==

== ENCOUNTER → 2018-06-11 | Outpatient (CLI) | payer MEDICARE, OTHER ==
[2018-06-11 11:02] LABS: INR 5.41
== END ==
LOC: LAB 10:21
PROVIDERS: ATTEND Emergency Medicine
DX: Z51.81 Encounter for therapeutic drug level monitoring (principal)
CPT/HCPCS: 36415; 85610

== ENCOUNTER → 2018-06-13 | Outpatient (CLI) | payer MEDICARE, OTHER ==
[2018-06-13 11:20] LABS: INR 4.39
== END ==
LOC: LAB 08:16
PROVIDERS: ATTEND Emergency Medicine
DX: Z51.81 Encounter for therapeutic drug level monitoring (principal)
CPT/HCPCS: 36415; 85610

== ENCOUNTER → 2018-06-20 | Outpatient (CLI) | payer MEDICARE, OTHER ==
[~2018-06-20] MED LIST changes: +OXYGENHOME INH; +PHYT5TAB PO
== END ==
LOC: LAB 08:32
PROVIDERS: ATTEND Emergency Medicine
DX: Z51.81 Encounter for therapeutic drug level monitoring (principal); I63.9 Cerebral infarction, unspecified
CPT/HCPCS: 36415; 85610

== ENCOUNTER → 2018-06-21 | Outpatient (CLI) | payer MEDICARE, OTHER ==
[2018-06-21 09:24] LABS: INR 5.56
== END ==
LOC: LAB 08:45
PROVIDERS: ATTEND Emergency Medicine
DX: T45.511A Poisoning by anticoagulants, accidental (unintentional), initial encounter (principal)
CPT/HCPCS: 36415; 85610

== ENCOUNTER → 2018-06-23 | Outpatient (CLI) | payer MEDICARE, OTHER ==
[~2018-06-23] MED LIST changes: +WARF3TAB14 PO
[2018-06-23 09:27] LABS: INR 4.76
== END ==
LOC: LAB 08:59
PROVIDERS: ATTEND Emergency Medicine
DX: Z51.81 Encounter for therapeutic drug level monitoring (principal)
CPT/HCPCS: 36415; 85610

== ENCOUNTER → 2018-06-26 | Outpatient (CLI) | payer MEDICARE, OTHER ==
[2018-06-26 08:20] LABS: INR 2.01
== END ==
LOC: LAB 08:01
PROVIDERS: ATTEND Emergency Medicine
DX: Z51.81 Encounter for therapeutic drug level monitoring (principal)
CPT/HCPCS: 36415; 85610

== ENCOUNTER → 2018-07-03 | Outpatient (CLI) | payer MEDICARE, OTHER ==
[2018-07-03 08:56] LABS: INR 3.75
== END ==
LOC: LAB 08:39
PROVIDERS: ATTEND Emergency Medicine
DX: Z51.81 Encounter for therapeutic drug level monitoring (principal)
CPT/HCPCS: 36415; 85610

== ENCOUNTER → 2018-07-10 | Outpatient (CLI) | payer MEDICARE, OTHER ==
[2018-07-10 09:24] LABS: INR 4.44
== END ==
LOC: LAB 08:24
PROVIDERS: ATTEND Emergency Medicine
DX: Z51.81 Encounter for therapeutic drug level monitoring (principal); Z79.01 Long term (current) use of anticoagulants
CPT/HCPCS: 36415; 85610

== ENCOUNTER → 2018-07-17 | Outpatient (CLI) | payer MEDICARE, OTHER ==
[~2018-07-17] MED LIST changes: +WARF1TAB15 PO
== END ==
LOC: LAB 08:36
PROVIDERS: ATTEND Emergency Medicine
DX: Z87.898 Personal history of other specified conditions (principal)
CPT/HCPCS: 36415; G0103; 84153

== ENCOUNTER → 2018-07-17 | Outpatient (CLI) | payer MEDICARE, OTHER ==
[2018-07-17 09:18] LABS: INR 4.07
== END ==
LOC: LAB 08:38
DX: Z51.81 Encounter for therapeutic drug level monitoring (principal)
CPT/HCPCS: 36415; 85610

== ENCOUNTER → 2018-07-20 | Outpatient (CLI) | payer MEDICARE, OTHER ==
[2018-07-20 15:31] LABS: PLATELET COUNT, AUTOMATED 294 K/uL (150-450)
[2018-07-20 15:35] LABS: LDL CHOLESTEROL 53 mg/dl
== END ==
LOC: LAB 14:21
PROVIDERS: ATTEND Emergency Medicine
DX: G47.33 Obstructive sleep apnea (adult) (pediatric) (principal); I63.443 Cerebral infarction due to embolism of bilateral cerebellar arteries; I10 Essential (primary) hypertension; Z87.898 Personal history of other specified conditions
CPT/HCPCS: 36415; 82040; 82247; 82310; 82374; 82435; 82465; 82565; 82947; 83718; 84075; 84132; 84155; 84295; 84450; 84460; 84478; 84520; 85025

== ENCOUNTER → 2018-07-26 | Outpatient (CLI) | payer MEDICARE, OTHER ==
[~2018-07-26] MED LIST changes: +DICL100G39 TOP; +FLUT16SP19 NS
[2018-07-26 11:50] LABS: INR 2.13
--- NOTE | 2018-07-26 12:10 | RADIOLOGY IMAGING REPORT ---
FACILITY: [facility] - [place] PATIENT NAME: Jamey Parham : 1940 MR: [id number] V: [id number] EXAM DATE: ORDERING PHYSICIAN: KARLIE REYES TECHNOLOGIST: Location: [facility] - [place] Patient: Jamey Parham : 1940 Visit/Account:[id number] Date of Sevice: 07/26/2018 Exam type: CHEST PA AND LAT History: Hypoxia Comparison: May 25, 2018 and December 19, 2014. Findings: The lungs are free of acute effusions, infiltrates or edema. There is flattening the hemidiaphragms which can be seen with hyperinflation. There is no evidence of a pneumothorax or pneumomediastinum. The cardiac silhouette appears normal. There are extensive spondylotic changes in the thoracic spin e. IMPRESSION: Hyperinflation of the lung bhatt No evidence of acute pulmonary consolidation Report Dictated By: Yulia Bacon MD at 07/26/2018 12:02 PM Report E-Signed By: Yulia Bacon MD at 07/26/2018 12:04 PM WSN:[email or web address]
== END ==
LOC: LAB 10:48
PROVIDERS: ATTEND Emergency Medicine
DX: Z79.01 Long term (current) use of anticoagulants (principal); R09.02 Hypoxemia
CPT/HCPCS: 36415; 71046; 85610

== ENCOUNTER → 2018-08-01 | Outpatient (CLI) | payer MEDICARE, OTHER | LOC: RESP 01:17 | PROVIDERS: ATTEND Emergency Medicine | DX: J44.9 Chronic obstructive pulmonary disease, unspecified (principal) | CPT/HCPCS: 94060; 94726; 94729 ==

== ENCOUNTER → 2018-08-02 | Outpatient (CLI) | payer MEDICARE, OTHER ==
[2018-08-02 08:58] LABS: INR 2.07
== END ==
LOC: LAB 08:32
PROVIDERS: ATTEND Emergency Medicine
DX: Z51.81 Encounter for therapeutic drug level monitoring (principal); Z79.01 Long term (current) use of anticoagulants
CPT/HCPCS: 36415; 85610

== ENCOUNTER 2018-08-03 09:33 | Observation (INO) | payer MEDICARE, OTHER ==
--- NOTE | 2018-08-03 09:34 | ER Report ---
History and Physical Time Seen By MD: 09:34 HPI/ROS CHIEF COMPLAINT: Acute confusion HISTORY OF PRESENT ILLNESS: Patient is an 78-year-old male here with complaints of acute confusion in the setting of a recent history of stroke. Reportedly the patient was confused per patient's prompting evaluation. Stroke alert was called and telemetry stroke was initiated after patient was brought to CT and CTA which were negative for hemorrhage. Patient has returned to baseline mental status per patient's but does not recall the incidents which brought him in today. Last known normal was around breakfast this morning. No focal neurological findings at time of initial evaluation REVIEW OF SYSTEMS: Constitutional: No fever, no chills. Eyes: No discharge. ENT: No sore throat. Cardiovascular: No chest pain, no palpitations. Respiratory: No cough, no shortness of breath. Gastrointestinal: No abdominal pain, no vomiting. Genitourinary: No hematuria. Musculoskeletal: No back pain. Skin: No rashes. Neurological: No focal neurological deficits, episode of acute confusion this morning Allergies: Coded Allergies: No Known Drug Allergies (Verified , 08/03/18) verified by pt 01/13/2018 Home Meds Active Scripts Lisinopril (LISINOPRIL) 10 Mg Tablet, 2 TAB PO BID, #180 TAB 3 Refills Prov:KARLIE REYES MD 08/08/18 Lovastatin (LOVASTATIN) 40 Mg Tablet, 1 TAB PO QDAY, #90 TAB 4 Refills Prov:KARLIE REYES MD 07/26/18 Oxygen (OXYGEN) Inha, 2 L INH QHS, #1 L Prov:KARLIE REYES MD 07/26/18 Tamsulosin Hcl (TAMSULOSIN HCL) 0.4 Mg Cap.er.24h, 1 CAP PO DAILY, #90 TAB 3 Refills Prov:KARLIE REYES MD 07/26/18 Warfarin Sodium (WARFARIN SODIUM) 1 Mg Tablet, 1 MG PO QDAY, #60 TAB 0 Refills Lovett 2 MG, M 1 MG, Tu 2 MG, W 2 MG, Th 2 MG, F 1 MG, Sa 2 MG Prov:KARLIE REYES MD 07/17/18 Meclizine Hcl (MECLIZINE HCL) 25 Mg Tablet, 25 MG PO Q6-8H PRN for DIZZINESS, #30 TAB Prov:SILKE WATT DO 05/25/18 Reported Medications Fluticasone Prop 50 Mcg Ns (FLONASE 50 MCG NS) 16 Gm [place].susp, 2 SPRAYS NS QDAY, BOT 07/26/18 Cetirizine Hcl (ZYRTEC) 10 Mg Tablet, 1 TAB PO HS, TAB 01/13/18 Cholecalciferol (Vitamin D3) (VITAMIN D) 1,000 Unit Capsule, 1 CAP PO DAILY, CAPSULE 10/19/16 Discontinued Scripts Lisinopril (LISINOPRIL) 10 Mg Tablet, 10 MG PO BID, #180 TAB 3 Refills Prov:KARLIE REYES MD 07/26/18 Diclofenac Sodium 1% Gel (VOLTAREN 1% GEL) 100 Gm Gel..gram., 4 GM TOP QID for PAIN, #3 TUBE 3 Refills Prov:KARLIE REYES MD 07/26/18 Hx Smoking: No Smoking Status: Never Smoker Hx Substance Use Disorder: No Hx Alcohol Use: Yes Constitutional Physical Exam General Appearance: The patient is alert, has no immediate need for airway protection and no signs of toxicity. No acute distress Eyes: Pupils equal and round no pallor or injection. ENT, Mouth: Mucous membranes are moist. Respiratory: There are no retractions, lungs are clear to auscultation. Cardiovascular: Regular rate and rhythm. Gastrointestinal: Abdomen is soft and non tender, no masses, bowel sounds normal. Neurological: No focal neurological deficits, alert and oriented with no recollection of events this morning prompting evaluation Skin: Warm and dry, no rashes. Musculoskeletal: Neck is supple non tender. Extremities are nontender, nonswollen and have full range of motion. DIFFERENTIAL DIAGNOSIS: After history and physical exam differential diagnosis was considered for altered mental status including but not limited to hypoglycemia, stroke, infectious process, electrolyte abnormality, head injury and intoxicants. Medical Decision Making Data Points Laboratory Hematology Test 08/03/18 09:40 08/03/18 09:53 08/03/18 10:39 Whole Blood Glucose 117 mg/DL (75-110) Red Blood Count 4.95 M/uL (4.00-5.60) Mean Corpuscular Volume 94.5 fL (80.0-96.0) Mean Corpuscular Hemoglobin 32.5 pg (26.0-33.0) Mean Corpuscular Hemoglobin Concent 34.4 g/dL (32.0-36.0) Red Cell Distribution Width 13.6 % (11.5-14.5) Mean Platelet Volume 7.6 fL (7.2-11.1) Neutrophils (%) (Auto) 65.8 % (39.4-72.5) Lymphocytes (%) (Auto) 20.4 % (17.6-49.6) Monocytes (%) (Auto) 8.1 % (4.1-12.4) Eosinophils (%) (Auto) 5.2 % (0.4-6.7) Basophils (%) (Auto) 0.5 % (0.3-1.4) Nucleated RBC Relative Count (auto) 0.1 /100WBC Neutrophils # (Auto) 3.7 K/uL (2.0-7.4) Lymphocytes # (Auto) 1.1 K/uL (1.3-3.6) Monocytes # (Auto) 0.5 K/uL (0.3-1.0) Eosinophils # (Auto) 0.3 K/uL (0.0-0.5) Basophils # (Auto) 0.0 K/uL (0.0-0.1) Nucleated RBC Absolute Count (auto) 0.00 K/uL Activated Partial Thromboplast Time 38 seconds (23-35) Sodium Level 137 mmol/L (137-145) Potassium Level 4.3 mmol/L (3.5-5.0) Chloride Level 100 mmol/L (98-107) Carbon Dioxide Level 31 mmol/L (22-30) Blood Urea Nitrogen 13 mg/dl (9-21) Creatinine 1.00 mg/dl (0.66-1.25) Glomerular Filtration Rate Calc > 60.0 Random Glucose 114 mg/dl (75-110) Calcium Level 9.3 mg/dl (8.4-10.2) Total Bilirubin 0.7 mg/dl (0.2-1.3) Aspartate Amino Transf (AST/SGOT) 22 U/L (0-35) Alanine Aminotransferase (ALT/SGPT) 23 U/L (0-56) Alkaline Phosphatase 41 U/L (0-126) Troponin I < 0.012 ng/ml Total Protein 6.8 g/dl (6.3-8.2) Albumin 4.0 g/dl (3.5-5.0) Urine Color Straw Urine Clarity Clear Urine pH 7.0 pH (4.8-9.5) Urine Specific Adel 1.011 Urine Protein Negative mg/dL (NEGATIVE) Urine Glucose (UA) Negative mg/dL (NEGATIVE) Urine Ketones Negative mg/dL (NEGATIVE) Urine Blood Negative (NEGATIVE) Urine Nitrite Negative (NEGATIVE) Urine Bilirubin Negative (NEGATIVE) Urine Urobilinogen Negative mg/dL (0.2-1.9) Urine Leukocyte Esterase Negative (NEGATIVE) Urine RBC <1 /HPF (0-2/HPF) Urine WBC 1 /HPF (0-5/HPF) Urine Squamous Epithelial Cells None /LPF (</=FEW) Urine Bacteria Negative /HPF (NONE-FEW) Urine Mucus None /HPF (NONE-FEW) Chemistry Test 08/03/18 09:40 08/03/18 09:53 08/03/18 10:39 Whole Blood Glucose 117 mg/DL (75-110) White Blood Count 5.6 k/uL (4.5-11.0) Red Blood Count 4.95 M/uL (4.00-5.60) Hemoglobin 16.1 g/dL (14.0-18.0) Hematocrit 46.8 % (42.0-52.0) Mean Corpuscular Volume 94.5 fL (80.0-96.0) Mean Corpuscular Hemoglobin 32.5 pg (26.0-33.0) Mean Corpuscular Hemoglobin Concent 34.4 g/dL (32.0-36.0) Red Cell Distribution Width 13.6 % (11.5-14.5) Platelet Count 281 K/uL (150-450) Mean Platelet Volume 7.6 fL (7.2-11.1) Neutrophils (%) (Auto) 65.8 % (39.4-72.5) Lymphocytes (%) (Auto) 20.4 % (17.6-49.6) Monocytes (%) (Auto) 8.1 % (4.1-12.4) Eosinophils (%) (Auto) 5.2 % (0.4-6.7) Basophils (%) (Auto) 0.5 % (0.3-1.4) Nucleated RBC Relative Count (auto) 0.1 /100WBC Neutrophils # (Auto) 3.7 K/uL (2.0-7.4) Lymphocytes # (Auto) 1.1 K/uL (1.3-3.6) Monocytes # (Auto) 0.5 K/uL (0.3-1.0) Eosinophils # (Auto) 0.3 K/uL (0.0-0.5) Basophils # (Auto) 0.0 K/uL (0.0-0.1) Nucleated RBC Absolute Count (auto) 0.00 K/uL Activated Partial Thromboplast Time 38 seconds (23-35) Glomerular Filtration Rate Calc > 60.0 Calcium Level 9.3 mg/dl (8.4-10.2) Total Bilirubin 0.7 mg/dl (0.2-1.3) Aspartate Amino Transf (AST/SGOT) 22 U/L (0-35) Alanine Aminotransferase (ALT/SGPT) 23 U/L (0-56) Alkaline Phosphatase 41 U/L (0-126) Troponin I < 0.012 ng/ml Total Protein 6.8 g/dl (6.3-8.2) Albumin 4.0 g/dl (3.5-5.0) Urine Color Straw Urine Clarity Clear Urine pH 7.0 pH (4.8-9.5) Urine Specific Adel 1.011 Urine Protein Negative mg/dL (NEGATIVE) Urine Glucose (UA) Negative mg/dL (NEGATIVE) Urine Ketones Negative mg/dL (NEGATIVE) Urine Blood Negative (NEGATIVE) Urine Nitrite Negative (NEGATIVE) Urine Bilirubin Negative (NEGATIVE) Urine Urobilinogen Negative mg/dL (0.2-1.9) Urine Leukocyte Esterase Negative (NEGATIVE) Urine RBC <1 /HPF (0-2/HPF) Urine WBC 1 /HPF (0-5/HPF) Urine Squamous Epithelial Cells None /LPF (</=FEW) Urine Bacteria Negative /HPF (NONE-FEW) Urine Mucus None /HPF (NONE-FEW) Coagulation Test 08/03/18 09:53 Activated Partial Thromboplast Time 38 seconds Urinalysis Test 08/03/18 10:39 Urine Color Straw Urine Clarity Clear Urine pH 7.0 pH (4.8-9.5) Urine Specific Adel 1.011 Urine Protein Negative mg/dL (NEGATIVE) Urine Glucose (UA) Negative mg/dL (NEGATIVE) Urine Ketones Negative mg/dL (NEGATIVE) Urine Blood Negative (NEGATIVE) Urine Nitrite Negative (NEGATIVE) Urine Bilirubin Negative (NEGATIVE) Urine Urobilinogen Negative mg/dL (0.2-1.9) Urine Leukocyte Esterase Negative (NEGATIVE) Urine RBC <1 /HPF (0-2/HPF) Urine WBC 1 /HPF (0-5/HPF) Urine Squamous Epithelial Cells None /LPF (</=FEW) Urine Bacteria Negative /HPF (NONE-FEW) Urine Mucus None /HPF (NONE-FEW) EKG/Imaging Imaging Location: [facility] [place] Patient: Jamey Parham : 1940 Visit/Account:[id number] Date of Sevice: 08/03/2018 EXAMINATION: CT Head without intravenous contrast CTA Neck with intravenous contrast CTA Head with intravenous contrast HISTORY: Confusion. TECHNIQUE: Axial noncontrast images are taken from the skull base through the vertex. Sagittal and coronal reformatted images are also submitted. Overlapping thin sections were obtained during a bolus of IV contrast from the aortic arch through the vertex. Reconstruction of the source data set includes multiplanar 2D in the sagittal and coronal planes, and 3D coronal thin slab MIP series. Forest Science Professor images have been stored on PACS. Stenosis of the internal carotid arteries are calculated using NASCET criteria. One of the following dose optimization techniques was utilized in the performance of this exam: Automated exposure control; adjustment of the mA and/or kV according to the patient's size; or use of an iterative reconstruction technique. Specific details can be referenced in the facility's radiology CT exam operational policy. CONTRAST: 75 mL of IV Isovue-370 COMPARISON: Head CT dated 05/25/2018. Brain MRI dated 05/25/2018. FINDINGS: CT HEAD: Brain volume: Mild generalized volume loss. Ventricles: Negative. Acute ischemic changes: None. Hemorrhage: None. Masses / edema: None. Duque-white: Negative. White matter: Negative. Vessels: Mild calcified plaque in the carotid siphons. Normal density in the dural venous sinuses. Extra-axial: Negative. Calvarium / skull base: Stable small lytic lesion in the left parietal bone which corresponds with T1 and T2 hyperintense signal on the recent brain MRI and therefore is most likely focal fat or hemangioma. Otherwise negative. Visualized sinuses / orbits: Completely opacified left frontal sinus. Mild mucosal thickening in the maxillary sinuses. Mild mucosal thickening in the right maxillary sinus. Leftward nasal septal deviation inferiorly. CTA: Aortic arch and great vessels: Calcified plaque with no significant stenosis or aneurysm. Right CCA / ICA: Mild calcified plaque at the origins of the common carotid and internal carotid arteries and in the carotid siphon. No significant stenosis. Left CCA / ICA: Mild calcified plaque at the origin of the common carotid artery with no significant stenosis. Calcified and noncalcified plaque in the carotid bulb with approximately 40% stenosis. Mild carotid siphon calcification with no significant stenosis. Vertebro-basilar: Mild calcified plaque at the origins of the vertebral arteries with no significant stenosis. Otherwise negative. [place]man of [place]: Negative. MACI circulation: Negative. MCA circulation: Negative. COMPENSATION SUPERVISOR circulation: Negative. Additional non-angiographic findings: Advanced multilevel degenerative disc disease and facet hypertrophy in the cervical spine. IMPRESSION: 1. No acute intracranial abnormality. 2. No large vessel occlusion or intracranial aneurysm. 3. Calcified and noncalcified plaque in the left carotid bulb with approximately 40% stenosis. 4. Advanced multilevel degenerative disc disease and facet hypertrophy in the cervical spine. 5. Stable mucosal thickening in the maxillary sinuses and complete opacification of the left frontal sinus. Location: [facility] [place] Patient: Jamey Parham : 1940 Visit/Account:[id number] Date of : 08/03/2018 EXAMINATION: CT Head without intravenous contrast CTA Neck with intravenous contrast CTA Head with intravenous contrast HISTORY: Confusion. TECHNIQUE: Axial noncontrast images are taken from the skull base through the vertex. Sagittal and coronal reformatted images are also submitted. Overlapping thin sections were obtained during a bolus of IV contrast from the aortic arch through the vertex. Reconstruction of the source data set includes multiplanar 2D in the sagittal and coronal planes, and 3D coronal thin slab MIP series. Forest Science Professor images have been stored on PACS. Stenosis of the internal carotid arteries are calculated using NASCET criteria. One of the following dose optimization techniques was utilized in the performance of this exam: Automated exposure control; adjustment of the mA and/or kV according to the patient's size; or use of an iterative reconstruction technique. Specific details can be referenced in the facility's radiology CT exam operational policy. CONTRAST: 75 mL of IV Isovue-370 COMPARISON: Head CT dated 05/25/2018. Brain MRI dated 05/25/2018. FINDINGS: CT HEAD: Brain volume: Mild generalized volume loss. Ventricles: Negative. Acute ischemic changes: None. Hemorrhage: None. Masses / edema: None. Duque-white: Negative. White matter: Negative. Vessels: Mild calcified plaque in the carotid siphons. Normal density in the dural venous sinuses. Extra-axial: Negative. Calvarium / skull base: Stable small lytic lesion in the left parietal bone which corresponds with T1 and T2 hyperintense signal on the recent brain MRI and therefore is most likely focal fat or hemangioma. Otherwise negative. Visualized sinuses / orbits: Completely opacified left frontal sinus. Mild mucosal thickening in the maxillary sinuses. Mild mucosal thickening in the right maxillary sinus. Leftward nasal septal deviation inferiorly. CTA: Aortic arch and great vessels: Calcified plaque with no significant stenosis or aneurysm. Right CCA / ICA: Mild calcified plaque at the origins of the common carotid and internal carotid arteries and in the carotid siphon. No significant stenosis. Left CCA / ICA: Mild calcified plaque at the origin of the common carotid artery with no significant stenosis. Calcified and noncalcified plaque in the carotid bulb with approximately 40% stenosis. Mild carotid siphon calcification with no significant stenosis. Vertebro-basilar: Mild calcified plaque at the origins of the vertebral arteries with no significant stenosis. Otherwise negative. Saxman of [place]: Negative. MACI circulation: Negative. MCA circulation: Negative. COMPENSATION SUPERVISOR circulation: Negative. Additional non-angiographic findings: Advanced multilevel degenerative disc disease and facet hypertrophy in the cervical spine. IMPRESSION: 1. No acute intracranial abnormality. 2. No large vessel occlusion or intracranial aneurysm. 3. Calcified and noncalcified plaque in the left carotid bulb with approximately 40% stenosis. 4. Advanced multilevel degenerative disc disease and facet hypertrophy in the cervical spine. 5. Stable mucosal thickening in the maxillary sinuses and complete opacification of the left frontal sinus. EXAMINATION: CT Head without intravenous contrast CTA Neck with intravenous contrast CTA Head with intravenous contrast HISTORY: Confusion. TECHNIQUE: Axial noncontrast images are taken from the skull base through the vertex. Sagittal and coronal reformatted images are also submitted. Overlapping thin sections were obtained during a bolus of IV contrast from the aortic arch through the vertex. Reconstruction of the source data set includes multiplanar 2D in the sagittal and coronal planes, and 3D coronal thin slab MIP series. Forest Science Professor images have been stored on PACS. Stenosis of the internal carotid arteries are calculated using NASCET criteria. One of the following dose optimization techniques was utilized in the performance of this exam: Automated exposure control; adjustment of the mA and/or kV according to the patient's size; or use of an iterative reconstruction technique. Specific details can be referenced in the facility's radiology CT exam operational policy. CONTRAST: 75 mL of IV Isovue-370 COMPARISON: Head CT dated 05/25/2018. Brain MRI dated 05/25/2018. FINDINGS: CT HEAD: Brain volume: Mild generalized volume loss. Ventricles: Negative. Acute ischemic changes: None. Hemorrhage: None. Masses / edema: None. Duque-white: Negative. White matter: Negative. Vessels: Mild calcified plaque in the carotid siphons. Normal density in the dural venous sinuses. Extra-axial: Negative. Calvarium / skull base: Stable small lytic lesion in the left parietal bone which corresponds with T1 and T2 hyperintense signal on the recent brain MRI and therefore is most likely focal fat or hemangioma. Otherwise negative. Visualized sinuses / orbits: Completely opacified left frontal sinus. Mild mucosal thickening in the maxillary sinuses. Mild mucosal thickening in the right maxillary sinus. Leftward nasal septal deviation inferiorly. CTA: Aortic arch and great vessels: Calcified plaque with no significant stenosis or aneurysm. Right CCA / ICA: Mild calcified plaque at the origins of the common carotid and internal carotid arteries and in the carotid siphon. No significant stenosis. Left CCA / ICA: Mild calcified plaque at the origin of the common carotid artery with no significant stenosis. Calcified and noncalcified plaque in the c arotid bulb with approximately 40% stenosis. Mild carotid siphon calcification with no significant stenosis. Vertebro-basilar: Mild calcified plaque at the origins of the vertebral arteries with no significant stenosis. Otherwise negative. Saxman of [place]: Negative. MACI circulation: Negative. MCA circulation: Negative. COMPENSATION SUPERVISOR circulation: Negative. Additional non-angiographic findings: Advanced multilevel degenerative disc disease and facet hypertrophy in the cervical spine. IMPRESSION: 1. No acute intracranial abnormality. 2. No large vessel occlusion or intracranial aneurysm. 3. Calcified and noncalcified plaque in the left carotid bulb with approximately 40% stenosis. 4. Advanced multilevel degenerative disc disease and facet hypertrophy in the cervical spine. 5. Stable mucosal thickening in the maxillary sinuses and complete opacification of the left frontal sinus. ED Course/Re-evaluation ED Course Patient is an 78-year-old male with a recent history of stroke here with an episode of acute confusion per patient's around the time of breakfast this morning which was within the last hour. Stroke alert was called initially, CTA of the head and neck and CT head showed no acute findings. Telemetry stroke was initiated. Patient had returned to baseline mental status but did not have any recollection of this morning's episode. No focal neurological findings were elicited on examination. I discussed the patient with the on-call hospitalist to admit him to his service with recommendations for an MRI and observation. Patient was stable at time of admission. Decision to Disposition Date: Aug 03, 2018 Decision to Disposition Time: 11:00 Depart Departure Latest Vital Signs Impression: Primary Impression: Acute confusion Condition: Improved Disposition: Admitted from ER Referrals: KARLIE REYES MD (PCP) FRANCISCO ANNA DO Aug 03, 2018 09:34
[2018-08-03] MEDS ORDERED: NS(*) 0.9% 50 ML BAG 0 ML ONE ×2 (09:53→09:55)
[2018-08-03] MEDS ORDERED: IOPAMIDOL 76% 50 ML INFUS BTL 50 ML ONE (09:53)
[2018-08-03] MEDS ORDERED: IOPAMIDOL 76% 50 ML INFUS BTL 100 ML ONE (09:55)
[2018-08-03 10:06] LABS: PLATELET COUNT, AUTOMATED 281 K/uL (150-450)
--- NOTE | 2018-08-03 10:08 | EKG ---
FACILITY: [facility] [place] PATIENT NAME: ANGELA ISAAC : [id number] MR: [id number] V: [id number] EXAM DATE: ORDERING PHYSICIAN: FRANCISCO ANNA TECHNOLOGIST: CHRISTA Test Reason : STROKE ALERT Blood Pressure : / mmHG Vent. Rate : 073 BPM Atrial Rate : 073 BPM P-R Int : 242 ms QRS Dur : 152 ms QT Int : 428 ms P-R-T Axes : 051 045 039 degrees QTc Int : 471 ms Sinus rhythm with 1st degree AV block Left bundle branch block Nonspecific ST findings Abnormal ECG Confirmed by MERLIN WEST ([id number] on 08/03/2018 3:31:04 PM Referred By: SHOSHANA Confirmed By:MERLIN WEST
[2018-08-03 10:17] LABS: INR 2.45
--- NOTE | 2018-08-03 10:47 | RADIOLOGY IMAGING REPORT ---
FACILITY: [facility] - [place] PATIENT NAME: Jamey Parham : 1940 MR: [id number] V: [id number] EXAM DATE: ORDERING PHYSICIAN: FRANCISCO ANNA TECHNOLOGIST: Location: [facility] [place] Patient: Jamey Parham : 1940 Visit/Account:[id number] Date of Sevice: 08/03/2018 EXAMINATION: CT Head without intravenous contrast CTA Neck with intravenous contrast CTA Head with intravenous contrast HISTORY: Confusion. TECHNIQUE: Axial noncontrast images are taken from the skull base through the vertex. Sagittal and coronal reformatted images are also submitted. Overlapping thin sections were obtained during a qamar us of IV contrast from the aortic arch through the vertex. Reconstruction of the source data set incl udes multiplanar 2D in the sagittal and coronal planes, and 3D coronal thin slab MIP series. Represen tative images have been stored on PACS. Stenosis of the internal carotid arteries are calculated usi ng NASCET criteria. One of the following dose optimization techniques was utilized in the performance of this exam: Autom ated exposure control; adjustment of the mA and/or kV according to the patient's size; or use of an i terative reconstruction technique. Specific details can be referenced in the facility's radiology C T exam operational policy. CONTRAST: 75 mL of IV Isovue-370 COMPARISON: Head CT dated 05/25/2018. Brain MRI dated 05/25/2018. FINDINGS: CT HEAD: Brain volume: Mild generalized volume loss. Ventricles: Negative. Acute ischemic changes: None. Hemorrhage: None. Masses / edema: None. Duque-white: Negative. White matter: Negative. Vessels: Mild calcified plaque in the carotid siphons. Normal density in the dural venous sinuses. Extra-axial: Negative. Calvarium / skull base: Stable small lytic lesion in the left parietal bone which corresponds with T 1 and T2 hyperintense signal on the recent brain MRI and therefore is most likely focal fat or akhil ioma. Otherwise negative. Visualized sinuses / orbits: Completely opacified left frontal sinus. Mild mucosal thickening in the maxillary sinuses. Mild mucosal thickening in the right maxillary sinus. Leftward nasal septal devia tion inferiorly. CTA: Aortic arch and great vessels: Calcified plaque with no significant stenosis or aneurysm. Right CCA / ICA: Mild calcified plaque at the origins of the common carotid and internal carotid ar teries and in the carotid siphon. No significant stenosis. Left CCA / ICA: Mild calcified plaque at the origin of the common carotid artery with no significan t stenosis. Calcified and noncalcified plaque in the carotid bulb with approximately 40% stenosis. Mi ld carotid siphon calcification with no significant stenosis. Vertebro-basilar: Mild calcified plaque at the origins of the vertebral arteries with no significan t stenosis. Otherwise negative. [place]: Negative. MACI circulation: Negative. MCA circulation: Negative. CREDIT CONTROL CLERK circulation: Negative. Additional non-angiographic findings: Advanced multilevel degenerative disc disease and facet hypertrophy in the cervical spine. IMPRESSION: 1. No acute intracranial abnormality. 2. No large vessel occlusion or intracranial aneurysm. 3. Calcified and noncalcified plaque in the left carotid bulb with approximately 40% stenosis. 4. Advanced multilevel degenerative disc disease and facet hypertrophy in the cervical spine. 5. Stable mucosal thickening in the maxillary sinuses and complete opacification of the left frontal sinus. Results were called to FRANCISCO ANNA at 08/03/2018 10:39 AM. Report Dictated By: Jarrell Boateng MD at 08/03/2018 10:15 AM Report E-Signed By: Jarrell Boateng MD at 08/03/2018 10:43 AM WSN:[email or web address]
--- NOTE | 2018-08-03 10:48 | RADIOLOGY IMAGING REPORT ---
FACILITY: [facility] PATIENT NAME: Jamey Parham : 1940 MR: [id number] V: [id number] EXAM DATE: ORDERING PHYSICIAN: FRANCISCO ANNA TECHNOLOGIST: Location: Patient: Jamey Parham : 1940 Visit/Account:[id number] Date of Sevice: 08/03/2018 EXAMINATION: CT Head without intravenous contrast CTA Neck with intravenous contrast CTA Head with intravenous contrast HISTORY: Confusion. TECHNIQUE: Axial noncontrast images are taken from the skull base through the vertex. Sagittal and coronal reformatted images are also submitted. Overlapping thin sections were obtained during a qamar us of IV contrast from the aortic arch through the vertex. Reconstruction of the source data set incl udes multiplanar 2D in the sagittal and coronal planes, and 3D coronal thin slab MIP series. Represen tative images have been stored on PACS. Stenosis of the internal carotid arteries are calculated usi ng NASCET criteria. One of the following dose optimization techniques was utilized in the performance of this exam: Autom ated exposure control; adjustment of the mA and/or kV according to the patient's size; or use of an i terative reconstruction technique. Specific details can be referenced in the facility's radiology C T exam operational policy. CONTRAST: 75 mL of IV Isovue-370 COMPARISON: Head CT dated 05/25/2018. Brain MRI dated 05/25/2018. FINDINGS: CT HEAD: Brain volume: Mild generalized volume loss. Ventricles: Negative. Acute ischemic changes: None. Hemorrhage: None. Masses / edema: None. Duque-white: Negative. White matter: Negative. Vessels: Mild calcified plaque in the carotid siphons. Normal density in the dural venous sinuses. Extra-axial: Negative. Calvarium / skull base: Stable small lytic lesion in the left parietal bone which corresponds with T 1 and T2 hyperintense signal on the recent brain MRI and therefore is most likely focal fat or akhil ioma. Otherwise negative. Visualized sinuses / orbits: Completely opacified left frontal sinus. Mild mucosal thickening in the maxillary sinuses. Mild mucosal thickening in the right maxillary sinus. Leftward nasal septal devia tion inferiorly. CTA: Aortic arch and great vessels: Calcified plaque with no significant stenosis or aneurysm. Right CCA / ICA: Mild calcified plaque at the origins of the common carotid and internal carotid ar teries and in the carotid siphon. No significant stenosis. Left CCA / ICA: Mild calcified plaque at the origin of the common carotid artery with no significan t stenosis. Calcified and noncalcified plaque in the carotid bulb with approximately 40% stenosis. Mi ld carotid siphon calcification with no significant stenosis. Vertebro-basilar: Mild calcified plaque at the origins of the vertebral arteries with no significan t stenosis. Otherwise negative. [place]: Negative. MACI circulation: Negative. MCA circulation: Negative. RETIREMENT VILLAGE MANAGER circulation: Negative. Additional non-angiographic findings: Advanced multilevel degenerative disc disease and facet hypertrophy in the cervical spine. IMPRESSION: 1. No acute intracranial abnormality. 2. No large vessel occlusion or intracranial aneurysm. 3. Calcified and noncalcified plaque in the left carotid bulb with approximately 40% stenosis. 4. Advanced multilevel degenerative disc disease and facet hypertrophy in the cervical spine. 5. Stable mucosal thickening in the maxillary sinuses and complete opacification of the left frontal sinus. Results were called to FRANCISCO ANNA at 08/03/2018 10:39 AM. Report Dictated By: Jarrell Boateng MD at 08/03/2018 10:15 AM Report E-Signed By: Jarrell Boateng MD at 08/03/2018 10:43 AM WSN:[email or web address]
--- NOTE | 2018-08-03 10:48 | RADIOLOGY IMAGING REPORT ---
FACILITY: [facility] [place] PATIENT NAME: Jamey Parham : 1940 MR: [id number] V: [id number] EXAM DATE: ORDERING PHYSICIAN: FRANCISCO ANNA TECHNOLOGIST: Location: [facility] Patient: Jamey Parham : 1940 Visit/Account:[id number] Date of Sevice: 08/03/2018 EXAMINATION: CT Head without intravenous contrast CTA Neck with intravenous contrast CTA Head with intravenous contrast HISTORY: Confusion. TECHNIQUE: Axial noncontrast images are taken from the skull base through the vertex. Sagittal and coronal reformatted images are also submitted. Overlapping thin sections were obtained during a qamar us of IV contrast from the aortic arch through the vertex. Reconstruction of the source data set incl udes multiplanar 2D in the sagittal and coronal planes, and 3D coronal thin slab MIP series. Represen tative images have been stored on PACS. Stenosis of the internal carotid arteries are calculated usi ng NASCET criteria. One of the following dose optimization techniques was utilized in the performance of this exam: Autom ated exposure control; adjustment of the mA and/or kV according to the patient's size; or use of an i terative reconstruction technique. Specific details can be referenced in the facility's radiology C T exam operational policy. CONTRAST: 75 mL of IV Isovue-370 COMPARISON: Head CT dated 05/25/2018. Brain MRI dated 05/25/2018. FINDINGS: CT HEAD: Brain volume: Mild generalized volume loss. Ventricles: Negative. Acute ischemic changes: None. Hemorrhage: None. Masses / edema: None. Duque-white: Negative. White matter: Negative. Vessels: Mild calcified plaque in the carotid siphons. Normal density in the dural venous sinuses. Extra-axial: Negative. Calvarium / skull base: Stable small lytic lesion in the left parietal bone which corresponds with T 1 and T2 hyperintense signal on the recent brain MRI and therefore is most likely focal fat or akhil ioma. Otherwise negative. Visualized sinuses / orbits: Completely opacified left frontal sinus. Mild mucosal thickening in the maxillary sinuses. Mild mucosal thickening in the right maxillary sinus. Leftward nasal septal devia tion inferiorly. CTA: Aortic arch and great vessels: Calcified plaque with no significant stenosis or aneurysm. Right CCA / ICA: Mild calcified plaque at the origins of the common carotid and internal carotid ar teries and in the carotid siphon. No significant stenosis. Left CCA / ICA: Mild calcified plaque at the origin of the common carotid artery with no significan t stenosis. Calcified and noncalcified plaque in the carotid bulb with approximately 40% stenosis. Mi ld carotid siphon calcification with no significant stenosis. Vertebro-basilar: Mild calcified plaque at the origins of the vertebral arteries with no significan t stenosis. Otherwise negative. [place]: Negative. MACI circulation: Negative. MCA circulation: Negative. RECREATION PROGRAM SPECIALIST circulation: Negative. Additional non-angiographic findings: Advanced multilevel degenerative disc disease and facet hypertrophy in the cervical spine. IMPRESSION: 1. No acute intracranial abnormality. 2. No large vessel occlusion or intracranial aneurysm. 3. Calcified and noncalcified plaque in the left carotid bulb with approximately 40% stenosis. 4. Advanced multilevel degenerative disc disease and facet hypertrophy in the cervical spine. 5. Stable mucosal thickening in the maxillary sinuses and complete opacification of the left frontal sinus. Results were called to FRANCISCO ANNA at 08/03/2018 10:39 AM. Report Dictated By: Jarrell Boateng MD at 08/03/2018 10:15 AM Report E-Signed By: Jarrell Boateng MD at 08/03/2018 10:43 AM WSN:[email or web address]
[2018-08-03] MEDS ORDERED: LABETALOL HCL 20 MG/4 ML SYR IVP ONE (10:55)
[2018-08-03] MEDS ORDERED: LABETALOL HCL 100 MG/20ML VIAL ONE (11:01)
[2018-08-03 11:25] VITALS: BP 188/97
[2018-08-03] MEDS ORDERED: NS(*) 0.9% 50 ML BAG 50 ML ONE (11:35)
[2018-08-03] MEDS ORDERED: GADOBENATE 529MG/1ML 15ML VIAL IVP ONE (11:35)
[2018-08-03 11:50] VITALS: BP 170/94
[2018-08-03] MEDS ORDERED: NS(*) 0.9% 1000 ML BAG 1,000 ML IV PRN (11:56)
[2018-08-03] MEDS ORDERED: LORazepam 2 MG/ML VIAL IVP ONE (12:20)
--- NOTE | 2018-08-03 12:20 | History & Physical ---
History of Present Illness Chief Complaint Confused History of Present Illness 78yo male with PMHx significant for CVA, HTN, BPH, peripheral neuropathy. He was noted by his to be acutely confused after breakfast this AM. He does recall eating his breakfast and reading afterwards, but then has essentially no recall of events for upwards of 30-60 minutes. His reports he appeared awake/alert and able to walk/talk, but he did not seem to understand what she would say to him and he would repeatedly ask what they were doing. She did not appreciate any focal weakness or change in speech. She had not seen any seizure/tonic clonic activity. He did not have any incontinence. These symptoms persisted for around thirty minutes and had resolved by the time he was on his way to the hospital. He states he has been doing fairly well other than frequent dizziness in the mornings usually accompanied by generalized fatigue. No GI/ complaints. No fevers or chills. No rashes. He was evaluated in the ER and found to be alert and oriented. His BP was significantly elevated. His CT scans were reported as unchanged and no acute hemorrhage. His labs were unremarkable. He was recommended for admission. History Problems: (1) BPH (benign prostatic hyperplasia) Status: Chronic (2) CVA (cerebral vascular accident) Status: Chronic (3) Periodic limb movement disorder (PLMD) Status: Chronic (4) Obstructive sleep apnea Status: Chronic (5) Hypertension, benign Status: Chronic (6) Hypercholesteremia Status: Chronic (7) History of elevated PSA Status: Chronic (8) Malignant neoplasm of skin of face Status: Resolved (9) Family history of prostate carcinoma Home Meds Active Scripts Lisinopril (LISINOPRIL) 10 Mg Tablet, 15 MG PO BID, #180 TAB 3 Refills Prov:KARLIE REYES MD 08/03/18 Lovastatin (LOVASTATIN) 40 Mg Tablet, 1 TAB PO QDAY, #90 TAB 4 Refills Prov:KARLIE REYES MD 07/26/18 Oxygen (OXYGEN) Inha, 2 L INH QHS, #1 L Prov:KARLIE REYES MD 07/26/18 Tamsulosin Hcl (TAMSULOSIN HCL) 0.4 Mg Cap.er.24h, 1 CAP PO DAILY, #90 TAB 3 Refills Prov:KARLIE REYES MD 12/5/18 Warfarin Sodium (WARFARIN SODIUM) 1 Mg Tablet, 1 MG PO QDAY, #60 TAB 0 Refills Lovett 2 MG, M 1 MG, Tu 2 MG, W 2 MG, Th 2 MG, F 1 MG, Sa 2 MG Prov:KARLIE REYES MD 07/17/18 Meclizine Hcl (MECLIZINE HCL) 25 Mg Tablet, 25 MG PO Q6-8H PRN for DIZZINESS, #30 TAB Prov:SILKE WATT DO 05/25/18 Reported Medications Fluticasone Prop 50 Mcg Ns (FLONASE 50 MCG NS) 16 Gm Lesage.susp, 2 SPRAYS NS QDAY, BOT 07/26/18 Cetirizine Hcl (ZYRTEC) 10 Mg Tablet, 1 TAB PO HS, TAB 01/13/18 Cholecalciferol (Vitamin D3) (VITAMIN D) 1,000 Unit Capsule, 1 CAP PO DAILY, CAPSULE 10/19/16 Discontinued Scripts Diclofenac Sodium 1% Gel (VOLTAREN 1% GEL) 100 Gm Gel..gram., 4 GM TOP QID for PAIN, #3 TUBE 3 Refills Prov:KARLIE REYES MD 07/26/18 Allergies: Coded Allergies: No Known Drug Allergies (Verified , 08/03/18) verified by pt 01/13/2018 Patient History: FH: HTN (hypertension) MOTHER (CANCER ), , Age:83 FH: arthritis MOTHER (CANCER ), , Age:83 FH: brain cancer BROTHER OR SISTER FH: macular degeneration MOTHER (CANCER ), , Age:83 Prostate carcinoma CHILD Hx Smoking: No Smoking Status: Never Smoker Caffeine Intake: Coffee Caffeine/Cups Per Day: 3 Hx Alcohol Use: Yes Hx Substance Use Disorder: No Social Drug Use: Never Review of Systems Constitutional: No Fever, No Weight Loss, No Weight Gain, No Chills, No Night Sweats Neurological: Confusion; No Syncope Eyes: No Vision Change, No Loss of Vision ENT: No Hearing Loss Cardiovascular: Orthostatic Hypotension; No Chest Pain, No Palpitations Respiratory: No Shortness of Breath, No Cough, No Wheezing Gastrointestinal: No Nausea, No Vomiting, No Diarrhea, No Hematemesis, No Hematochezia, No Melena, No Abdominal Pain Genitourinary: No Dysuria, No Hematuria, No Urinary Incontinence Musculoskeletal: No Pain, No Impaired Mobility Psychiatric: No Depression Exam Vital Signs Vital Signs Date Time Temp Pulse Resp B/P (MAP) Pulse Ox O2 Delivery O2 Flow Rate FiO2 08/03/18 10:38 69 15 92 08/03/18 10:37 200/101 (134) 08/03/18 09:40 97.9 Room Air General Appearance: Alert, Awake, No Acute Distress Neuro: Other (Motor exam is grossly normal/DTRs 2+/4 bilaterally in biceps/patellar) Eyes: PERRLA ENT: Oropharynx Clear, Other (tongue midline) Neck: No Masses, Other (no bruits) Cardiovascular: Regular Rate and Rhythm, No Edema, No JVD Respiratory: Clear to Auscultation Chest: No Tenderness GI: Abd Soft and Non-Tender : No CVA Tenderness Lymph: No Adenopathy Musculoskeletal: Other (no focal weakness noted) Extremities: Warm, Perfused Integumentary: Skin Intact without Lesion / Mass Psych: Alert & Oriented X3 Medical Decision Making Data Points Result Diagram: 08/03/18 0953 08/03/18 0953 Item Value Date Time Urine Mucus None /HPF 08/03/18 1039 Urine Bacteria Negative /HPF 08/03/18 1039 Urine Squamous Epithelial Cells None /LPF 08/03/18 1039 Urine WBC 1 /HPF 08/03/18 1039 Urine RBC <1 /HPF 08/03/18 1039 Urine Leukocyte Esterase Negative 08/03/18 1039 Urine Urobilinogen Negative mg/dL 08/03/18 1039 Urine Bilirubin Negative 08/03/18 1039 Urine Nitrite Negative 08/03/18 1039 Urine Blood Negative 08/03/18 1039 Urine Ketones Negative mg/dL 08/03/18 1039 Urine Glucose (UA) Negative mg/dL 08/03/18 1039 Urine Protein Negative mg/dL 08/03/18 1039 Urine Specific [place] 1.011 08/03/18 1039 Urine pH 7.0 pH 08/03/18 1039 Urine Clarity Clear 08/03/18 1039 Urine Color Straw 08/03/18 1039 Albumin 4.0 g/dl 08/03/18 0953 Total Protein 6.8 g/dl 08/03/18 0953 Troponin I < 0.012 ng/ml 08/03/18 0953 Alkaline Phosphatase 41 U/L 08/03/18 0953 Alanine Aminotransferase (ALT/SGPT) 23 U/L 08/03/18 0953 Aspartate Amino Transf (AST/SGOT) 22 U/L 08/03/18 0953 Total Bilirubin 0.7 mg/dl 08/03/18 0953 Calcium Level 9.3 mg/dl 08/03/18 09 Activated Partial Thromboplast Time 38 seconds H 08/03/18 0953 Prothromb Time International Ratio 2.45 08/03/18 09 Prothrombin Time 27.1 seconds H 08/03/18 09 EKG / Imaging EKG Interpretation PATIENT NAME: ANGELA ISAAC : [id number] MR: [id number] V: [id number] EXAM DATE: ORDERING PHYSICIAN: FRANCISCO ANNA TECHNOLOGIST: CHRISTA Test Reason : STROKE ALERT Blood Pressure : / mmHG Vent. Rate : 073 BPM Atrial Rate : 073 BPM P-R Int : 242 ms QRS Dur : 152 ms QT Int : 428 ms P-R-T Axes : 051 045 039 degrees QTc Int : 471 ms Sinus rhythm with 1st degree AV block Left bundle branch block Abnormal ECG When compared with ECG of 25-MAY-2018 13:26, premature ventricular complexes are no longer present T wave inversion no longer evident in Lateral leads Referred By: SHOSHANA Confirmed By: Imaging PATIENT NAME: Angela Isaac : 1940 MR: [id number] V: [id number] EXAM DATE: ORDERING PHYSICIAN: FRANCISCO ANNA TECHNOLOGIST: Location: [facility] Patient: Angela Isaac : 1940 Visit/Account:[id number] Date of Sevice: 08/03/2018 EXAMINATION: CT Head without intravenous contrast CTA Neck with intravenous contrast CTA Head with intravenous contrast HISTORY: Confusion. TECHNIQUE: Axial noncontrast images are taken from the skull base through the vertex. Sagittal and coronal reformatted images are also submitted. Overlappin g thin sections were obtained during a bolus of IV contrast from the aortic arch through the vertex. Reconstruction of the source data set includes multiplanar 2D in the sagittal and coronal planes, and 3D coronal thin slab MIP series. Box Order Person images have been stored on PACS. Stenosis of the internal carotid arteries are calculated using NASCET criteria. One of the following dose optimization techniques was utilized in the performance of this exam: Automated exposure control; adjustment of the mA and/or kV according to the patient's size; or use of an iterative reconstruction technique. Specific details can be referenced in the facility's radiology CT exam operational policy. CONTRAST: 75 mL of IV Isovue-370 COMPARISON: Head CT dated 05/25/2018. Brain MRI dated 05/25/2018. FINDINGS: CT HEAD: Brain volume: Mild generalized volume loss. Ventricles: Negative. Acute ischemic changes: None. Hemorrhage: None. Masses / edema: None. Duque-white: Negative. White matter: Negative. Vessels: Mild calcified plaque in the carotid siphons. Normal density in the dural venous sinuses. Extra-axial: Negative. Calvarium / skull base: Stable small lytic lesion in the left parietal bone which corresponds with T1 and T2 hyperintense signal on the recent brain MRI and therefore is most likely focal fat or hemangioma. Otherwise negative. Visualized sinuses / orbits: Completely opacified left frontal sinus. Mild mucosal thickening in the maxillary sinuses. Mild mucosal thickening in the right maxillary sinus. Leftward nasal septal deviation inferiorly. CTA: Aortic arch and great vessels: Calcified plaque with no significant stenosis or aneurysm. Right CCA / ICA: Mild calcified plaque at the origins of the common carotid and internal carotid arteries and in the carotid siphon. No significant stenosis. Left CCA / ICA: Mild calcified plaque at the origin of the common carotid artery with no significant stenosis. Calcified and noncalcified plaque in the carotid bulb with approximately 40% stenosis. Mild carotid siphon calcification with no significant stenosis. Vertebro-basilar: Mild calcified plaque at the origins of the vertebral arteries with no significant stenosis. Otherwise negative. [place]: Negative. MACI circulation: Negative. MCA circulation: Negative. CONTOUR SANDER circulation: Negative. Additional non-angiographic findings: Advanced multilevel degenerative disc disease and facet hypertrophy in the cervical spine. IMPRESSION: 1. No acute intracranial abnormality. 2. No large vessel occlusion or intracranial aneurysm. 3. Calcified and noncalcified plaque in the left carotid bulb with approximately 40% stenosis. 4. Advanced multilevel degenerative disc disease and facet hypertrophy in the cervical spine. 5. Stable mucosal thickening in the maxillary sinuses and complete opacification of the left frontal sinus. Results were called to FRANCISCO ANNA at 08/03/2018 10:39 AM. Report Dictated By: Jarrell Boateng MD at 08/03/2018 10:15 AM Report E-Signed By: Jarrell Boateng MD at 08/03/2018 10:43 AM WSN:[email or web address] Assessment and Plan Problems: (1) Acute confusion Status: Acute Assessment & Plan: It appears to have resolved at this point. Evaluation thus far rather non-revealing. Will admit for further evaluation. Place on telemetry. Check EEG. Monitor BPs closely and treat with his usual lisinopril - try to avoid excessive lowering. Will check MRI of brain to see if any abnormalities. Continue anticoagulation with warfarin - monitor protime/INR. Continue lovastatin. He is set to have CHRISTOPHE and implanted recorder tomorrow with cardiology. (2) CVA (cerebral vascular accident) Status: Chronic Assessment & Plan: Question if this episode is recurrent ischemic event vs. atypical seizure vs. transient global amnestic event. Will evaluate as noted above. (3) Obstructive sleep apnea Status: Chronic Assessment & Plan: Will continue his usual CPAP/BiPAP. (4) BPH (benign prostatic hyperplasia) Status: Chronic Assessment & Plan: Continue the Flomax for now, but question if it may be causing some of his early day dizziness symptoms. (5) Hypertension, benign Status: Chronic Assessment & Plan: BP quite elevated in the ER. Will continue his lisinopril (and Flomax) and watch BPs closely. May need further modification of his regimen, but will try to avoid any excessive lowering. Copies to: KARLIE REYES MD ; Venous Thromboembolism Antithrombotics Is Pt On Any Antithrombotics?: Yes Exam Sepsis Risk: No Definite Risk MERLIN WEST MD Aug 03, 2018 12:20
[2018-08-03] MEDS ORDERED: WARFARIN SOD 2 MG TAB PO SCH (13:00)
--- NOTE | 2018-08-03 14:25 | RADIOLOGY IMAGING REPORT ---
[place] [facility] [place] NAME: Jamey Parham : 1940 MR: [id number] V: [id number] EXAM DATE: ORDERING PHYSICIAN: MERLIN WEST TECHNOLOGIST: Location: [facility] [place] Patient: Jamey Parham : 1940 Visit/Account:[id number] Date of Sevice: 08/03/2018 BRAIN W/O CONTRAST Comparisons: Head CT scan dated August 03, 2018 and previous brain MRI dated May 25, 2018 Additional pertinent history: Acute confusion TECHNIQUE: Multiplanar, multisequence brain MRI was performed without gadolinium contrast. FINDINGS: Sagittal midline structures and craniocervical junction: Negative. Midline shift: None. Ventricles: Negative. Brain parenchyma: Diffusion weighted imaging: Tiny foci of restricted diffusion involving the posterior right tempora l lobe as well as a solitary focus of restricted diffusion involving the left cerebellar hemisphere. Gradient sequence: Negative. T2 weighted FLAIR images: Scattered foci of abnormal increased T2 signal within the periventricular and subcortical white matter, nonspecific but likely representing small vessel ischemic change on a chronic basis. Extra-axial spaces: Negative. Dural venous sinuses and major arterial flow voids: Negative. Mastoid air cells and paranasal sinuses: Complete opacification of the left frontal sinus. Mild mucos al thickening involving both maxillary sinuses as well as the ethmoid air cells. Surrounding soft tissues and orbits: Negative. Impression: 1. Foci of restricted diffusion compatible with acute infarct involving the posterior right temporal lobe and the left cerebellar hemisphere. 2. Other age-related changes as described above. 3. No intraparenchymal hemorrhage. Results were discussed with MERLIN WEST at 08/03/2018 2:21 PM. Report Dictated By: Devon Teixeira MD at 08/03/2018 2:05 PM Report E-Signed By: Devon Teixeira MD at 08/03/2018 2:21 PM WSN:[email or web address]
[2018-08-03 15:00] VITALS: BP 146/86
[2018-08-03 19:07] VITALS: BP 176/92
[2018-08-03 19:21] VITALS: BP 165/78
[2018-08-03] MEDS: LISINOPRIL 10 MG TAB PO SCH (20:33)
[2018-08-03] MEDS ORDERED: LOVASTATIN 20 MG TAB PO SCH (21:00)
[2018-08-03] MEDS ORDERED: TAMSULOSIN HCL 0.4 MG CAP PO SCH (21:00)
[2018-08-04 01:32] VITALS: BP 166/90
[2018-08-04 03:40] VITALS: BP 145/77
[2018-08-04 05:55] LABS: INR 2.39
[2018-08-04 07:42] VITALS: BP 135/86
--- NOTE | 2018-08-04 08:13 | Hospitalist Depart ---
Discharge Summary Reason for Hosp/Final Diag: (1) CVA (cerebral vascular accident) Status: Chronic Hospital Course & Plan: He presented with acute confusion. MRI of brain revealed Foci of restricted diffusion compatible with acute infarct involving the posterior right temporal lobe and the left cerebellar hemisphere, consistent with CVA. He will continue anticoagulation with warfarin, and will have CHRISTOPHE with implanted recorder today with cardiology. (2) Acute confusion Status: Acute Hospital Course & Plan: It appears to have resolved upon admission. He was placed on telemetry, had an EEG. Continue anticoagulation with warfarin. Continue lovastatin. He is set to have CHRISTOPHE and implanted recorder today with cardiology. (3) Obstructive sleep apnea Status: Chronic Hospital Course & Plan: Will continue his usual CPAP/BiPAP. (4) BPH (benign prostatic hyperplasia) Status: Chronic Hospital Course & Plan: Continue the Flomax. (5) Hypertension, benign Status: Chronic Hospital Course & Plan: He is on chronic treatment with lisinopril, which has recently been increased by PCP. May need further modification of his regimen secondary to elevated BP, but will try to avoid any excessive lowering. Departure Latest Vital Signs Vital Signs 08/04/18 08/04/18 01:32 07:42 Temp 98.0 Pulse 71 Resp 14 B/P (MAP) 135/86 (102) Pulse Ox 96 O2 Delivery Nasal Cannula O2 Flow Rate 2.0 Weight (Pounds): 217 Result Diagram: 08/03/1853 08/03/18952 Condition: Improved Discharge: Home, Self Care Discharge Instructions Home Meds Active Scripts Lisinopril (LISINOPRIL) 10 Mg Tablet, 15 MG PO BID, #180 TAB 3 Refills Prov:KARLIE SMILEY MD 08/03/18 Lovastatin (LOVASTATIN) 40 Mg Tablet, 1 TAB PO QDAY, #90 TAB 4 Refills Prov:KARLIE SMILEY MD 07/26/18 Oxygen (OXYGEN) Inha, 2 L INH QHS, #1 L Prov:KARLIE SMILEY MD 07/26/18 Tamsulosin Hcl (TAMSULOSIN HCL) 0.4 Mg Cap.er.24h, 1 CAP PO DAILY, #90 TAB 3 Refills Prov:KARLIE SMILEY MD 07/26/18 Warfarin Sodium (WARFARIN SODIUM) 1 Mg Tablet, 1 MG PO QDAY, #60 TAB 0 Refills Lovett 2 MG, M 1 MG, Tu 2 MG, W 2 MG, Th 2 MG, F 1 MG, Sa 2 MG Prov:KARLIE SMILEY MD 07/17/18 Meclizine Hcl (MECLIZINE HCL) 25 Mg Tablet, 25 MG PO Q6-8H PRN for DIZZINESS, #30 TAB Prov:SILKE WATT V DO 05/25/18 Reported Medications Fluticasone Prop 50 Mcg Ns (FLONASE 50 MCG NS) 16 Gm [place].susp, 2 SPRAYS NS QDAY, BOT 07/26/18 Cetirizine Hcl (ZYRTEC) 10 Mg Tablet, 1 TAB PO HS, TAB 01/13/18 Cholecalciferol (Vitamin D3) (VITAMIN D) 1,000 Unit Capsule, 1 CAP PO DAILY, CAPSULE 10/19/16 Discontinued Scripts Diclofenac Sodium 1% Gel (VOLTAREN 1% GEL) 100 Gm Gel..gram., 4 GM TOP QID for PAIN, #3 TUBE 3 Refills Prov:KARLIE SMILEY MD 07/26/18 Diet: Regular Activity: As Tolerated Special Instructions: Follow up with Dr. Smiley within one week. Perform CHRISTOPHE today with Cardiology. Copies to: KARLIE SMILEY MD ; Venous Thromboembolism Antithrombotics Is Pt On Any Antithrombotics?: Yes GOLD SCOTT Aug 04, 2018 08:13
[2018-08-04] MEDS: LISINOPRIL 10 MG TAB PO SCH (08:14)
[2018-08-04] MEDS ORDERED: WARFARIN SOD 1 MG TAB PO SCH (13:00)
[2018-08-06] MEDS ORDERED: INFLUENZA VIRUS VAC 0.5ML SYR IM ONLY ONE (09:00)
[2018-08-08] MEDS ORDERED: LISI-362 PO (10:49)
== END 2018-08-04 07:55 | disposition home or self-care (01) ==
LOC: ER 10:04 → INTOOBSV 11:01 → MED 11:01
PROVIDERS: ADMIT Internal Medicine; ATTEND Internal Medicine
DX: I63.9 Cerebral infarction, unspecified (principal); R41.0 Disorientation, unspecified; G47.33 Obstructive sleep apnea (adult) (pediatric); N40.0 Benign prostatic hyperplasia without lower urinary tract symptoms; I10 Essential (primary) hypertension; G47.61 Periodic limb movement disorder; E78.00 Pure hypercholesterolemia, unspecified; Z85.46 Personal history of malignant neoplasm of prostate; Z85.828 Personal history of other malignant neoplasm of skin; Z79.01 Long term (current) use of anticoagulants
CPT/HCPCS: 36415; 36416; 70450; 70496; 70498; 70551; 81001; 82948; 84484; 85025; 85610; 85730; 93005; 95819; 99285; A9270; G0378; J2060; J7050; Q9967; 82040; 82247; 82310; 82374; 82435; 82565; 82947; 84075; 84132; 84155; 84295; 84450; 84460; 84520; A9577

== ENCOUNTER 2018-08-07 16:27 | Emergency (ER) | payer MEDICARE, OTHER ==
[~2018-08-07 16:27] MED LIST changes: -AMLO-111 PO; +AMLO-125 PO
--- NOTE | 2018-08-07 16:44 | ER Report ---
History and Physical Time Seen By MD: 16:44 HPI/ROS CHIEF COMPLAINT: High blood pressure HISTORY OF PRESENT ILLNESS: This is an 78-year-old male who presents to the emergency department from the cardiac rehabilitation department for hypertensio n. The patient was seen in cardiac rehabilitation today, this past Tuesday he had an implanted equipment monitor phototypesetting, none AICD, not a pacemaker, they are unsure what caused the stroke in May, therefore they presented the device and the information can be transmitted via phone. Patient did have a stroke in May of this year. Was given TPA, has done remarkably well since then. He has no headache today, he states he's had some difficulty finding his words over the last couple of days but other than that no other complaints. As I'm talking to the patient he does appear to have a very mild droop on the left side of his mouth. Unsure if this is new or as a result of his previous stroke. Given the hypertension I did recommend to the patient a CT, patient agrees. No recent fevers or chills. No nausea or vomiting. No chest pain or shortness of breath. REVIEW OF SYSTEMS: Constitutional: No fever, no chills. Eyes: No discharge. ENT: No sore throat. Cardiovascular: As above. Respiratory: No cough, no shortness of breath. Gastrointestinal: No abdominal pain, no vomiting. Genitourinary: No hematuria. Musculoskeletal: No back pain. Skin: No rashes. Neurological: As above. Allergies: Coded Allergies: No Known Drug Allergies (Verified , 08/03/18) verified by pt 01/13/2018 Home Meds Active Scripts Lisinopril (LISINOPRIL) 10 Mg Tablet, 15 MG PO BID, #180 TAB 3 Refills Prov:KARLIE SMILEY MD 08/03/18 Lovastatin (LOVASTATIN) 40 Mg Tablet, 1 TAB PO QDAY, #90 TAB 4 Refills Prov:KARLIE SMILEY MD 07/26/18 Oxygen (OXYGEN) Inha, 2 L INH QHS, #1 L Prov:KARLIE SMILEY MD 07/26/18 Tamsulosin Hcl (TAMSULOSIN HCL) 0.4 Mg Cap.er.24h, 1 CAP PO DAILY, #90 TAB 3 Refills Prov:KARLIE SMILEY MD 07/26/18 Warfarin Sodium (WARFARIN SODIUM) 1 Mg Tablet, 1 MG PO QDAY, #60 TAB 0 Refills Lovett 2 MG, M 1 MG, Tu 2 MG, W 2 MG, Th 2 MG, F 1 MG, Sa 2 MG Prov:KARLIE SMILEY MD 07/17/18 Meclizine Hcl (MECLIZINE HCL) 25 Mg Tablet, 25 MG PO Q6-8H PRN for DIZZINESS, #30 TAB Prov:DILLANRICKSILKE Juan Antonio KING 05/25/18 Reported Medications Fluticasone Prop 50 Mcg Ns (FLONASE 50 MCG NS) 16 Gm [place].susp, 2 SPRAYS NS QDAY, BOT 07/26/18 Cetirizine Hcl (ZYRTEC) 10 Mg Tablet, 1 TAB PO HS, TAB 01/13/18 Cholecalciferol (Vitamin D3) (VITAMIN D) 1,000 Unit Capsule, 1 CAP PO DAILY, CAPSULE 10/19/16 Discontinued Scripts Diclofenac Sodium 1% Gel (VOLTAREN 1% GEL) 100 Gm Gel..gram., 4 GM TOP QID for PAIN, #3 TUBE 3 Refills Prov:KARLIE SMILEY MD 07/26/18 Past Medical/Surgical History The patient has a past medical and surgical history of a stroke, hypertension, prostatitis, prostate surgery, arthritis, chronic back pain, deviated septum w ith repair, skin cancer, right elbow surgery. Reviewed Nurses Notes: Yes Hx Smoking: No Smoking Status: Never Smoker Hx Substance Use Disorder: No Hx Alcohol Use: Yes Constitutional Vital Sign - Last 24 Hours 08/07/18 08/07/18 08/07/18 08/07/18 16:44 19:14 19:17 19:47 Temp 97.8 Pulse 62 63 63 Resp 16 14 16 B/P (MAP) 195/108 201/107 (138) 187/92 (123) 175/88 (117) Pulse Ox 93 93 66 O2 Delivery Room Air Room Air Physical Exam General Appearance: The patient is alert, has no immediate need for airway protection and no signs of toxicity. Eyes: Pupils equal and round no pallor or injection. EOMs intact. No neck mass. ENT, Mouth: Mucous membranes are moist. Slight droop to the left side of the mouth, unsure if this is persistent after the stroke in May. No tongue deviation. Respiratory: There are no retractions, lungs are clear to auscultation. Cardiovascular: Regular rate and rhythm, distant, no murmurs, clicks or rubs. Gastrointestinal: Abdomen is soft and non tender, no masses, bowel sounds normal. Neurological: Alert and oriented 4. Moving all extremities. Following all comm ands. There is diminished strength on extension of the left foot, however he is able to hold the leg off the gurney for 5 seconds. No upper extremity deficits, no pronator drift. Neurological: Repeat exam on the lower extremities that show improvement of extension of the left foot, it is now equal to the right. Skin: Warm and dry, no rashes. Musculoskeletal: Neck is supple non tender. Extremities are nontender, nonswollen and have full range of motion. DIFFERENTIAL DIAGNOSIS: After history and physical exam differential diagnosis was considered for CVA, TIA, hypertension. Medical Decision Making Data Points Result Diagram: 08/07/18 1706 08/07/18 1706 Laboratory Hematology Test 08/07/18 17:06 Red Blood Count 4.85 M/uL (4.00-5.60) Mean Corpuscular Volume 93.6 fL (80.0-96.0) Mean Corpuscular Hemoglobin 32.6 pg (26.0-33.0) Mean Corpuscular Hemoglobin Concent 34.8 g/dL (32.0-36.0) Red Cell Distribution Width 13.4 % (11.5-14.5) Mean Platelet Volume 7.9 fL (7.2-11.1) Neutrophils (%) (Auto) 66.1 % (39.4-72.5) Lymphocytes (%) (Auto) 21.7 % (17.6-49.6) Monocytes (%) (Auto) 8.6 % (4.1-12.4) Eosinophils (%) (Auto) 3.0 % (0.4-6.7) Basophils (%) (Auto) 0.6 % (0.3-1.4) Nucleated RBC Relative Count (auto) 0.0 /100WBC Neutrophils # (Auto) 4.3 K/uL (2.0-7.4) Lymphocytes # (Auto) 1.4 K/uL (1.3-3.6) Monocytes # (Auto) 0.6 K/uL (0.3-1.0) Eosinophils # (Auto) 0.2 K/uL (0.0-0.5) Basophils # (Auto) 0.0 K/uL (0.0-0.1) Nucleated RBC Absolute Count (auto) 0.00 K/uL Prothrombin Time 20.3 seconds (12.0-14.4) Prothromb Time International Ratio 1.71 Activated Partial Thromboplast Time 34 seconds (23-35) Sodium Level 138 mmol/L (137-145) Potassium Level 3.9 mmol/L (3.5-5.0) Chloride Level 101 mmol/L (98-107) Carbon Dioxide Level 28 mmol/L (22-30) Blood Urea Nitrogen 12 mg/dl (9-21) Creatinine 0.90 mg/dl (0.66-1.25) Glomerular Filtration Rate Calc > 60.0 Random Glucose 107 mg/dl (75-110) Calcium Level 9.2 mg/dl (8.4-10.2) Total Bilirubin 0.5 mg/dl (0.2-1.3) Aspartate Amino Transf (AST/SGOT) 20 U/L (0-35) Alanine Aminotransferase (ALT/SGPT) 24 U/L (0-56) Alkaline Phosphatase 43 U/L (0-126) Total Protein 6.9 g/dl (6.3-8.2) Albumin 4.2 g/dl (3.5-5.0) Chemistry Test 08/07/18 17:06 White Blood Count 6.6 k/uL (4.5-11.0) Red Blood Count 4.85 M/uL (4.00-5.60) Hemoglobin 15.8 g/dL (14.0-18.0) Hematocrit 45.4 % (42.0-52.0) Mean Corpuscular Volume 93.6 fL (80.0-96.0) Mean Corpuscular Hemoglobin 32.6 pg (26.0-33.0) Mean Corpuscular Hemoglobin Concent 34.8 g/dL (32.0-36.0) Red Cell Distribution Width 13.4 % (11.5-14.5) Platelet Count 285 K/uL (150-450) Mean Platelet Volume 7.9 fL (7.2-11.1) Neutrophils (%) (Auto) 66.1 % (39.4-72.5) Lymphocytes (%) (Auto) 21.7 % (17.6-49.6) Monocytes (%) (Auto) 8.6 % (4.1-12.4) Eosinophils (%) (Auto) 3.0 % (0.4-6.7) Basophils (%) (Auto) 0.6 % (0.3-1.4) Nucleated RBC Relative Count (auto) 0.0 /100WBC Neutrophils # (Auto) 4.3 K/uL (2.0-7.4) Lymphocytes # (Auto) 1.4 K/uL (1.3-3.6) Monocytes # (Auto) 0.6 K/uL (0.3-1.0) Eosinophils # (Auto) 0.2 K/uL (0.0-0.5) Basophils # (Auto) 0.0 K/uL (0.0-0.1) Nucleated RBC Absolute Count (auto) 0.00 K/uL Prothrombin Time 20.3 seconds (12.0-14.4) Prothromb Time International Ratio 1.71 Activated Partial Thromboplast Time 34 seconds (23-35) Glomerular Filtration Rate Calc > 60.0 Calcium Level 9.2 mg/dl (8.4-10.2) Total Bilirubin 0.5 mg/dl (0.2-1.3) Aspartate Amino Transf (AST/SGOT) 20 U/L (0-35) Alanine Aminotransferase (ALT/SGPT) 24 U/L (0-56) Alkaline Phosphatase 43 U/L (0-126) Total Protein 6.9 g/dl (6.3-8.2) Albumin 4.2 g/dl (3.5-5.0) Coagulation Test 08/07/18 17:06 Prothrombin Time 20.3 seconds Prothromb Time International Ratio 1.71 Activated Partial Thromboplast Time 34 seconds EKG/Imaging EKG Interpretation 12 lead EKG: Time of EKG 1721. Rhythm: Sinus rhythm with 1st degree AV block, ventricular rate 67 bpm. Jeddo: normal QRS: normal ST segments: Left bundle branch block. No significant changes from the 08/03/2018 EKG. Imaging Location: [facility] Patient: Jamey Parham : 1940 Visit/Account:[id number] Date of Sevice: 08/07/2018 EXAMINATION: CT head without IV contrast HISTORY: History of stroke. Hypertension. Difficulty finding words. Decreased strength on the left. TECHNIQUE: Axial CT images of the head were obtained from the vertex to the skull base without IV contrast, with coronal and sagittal 2D reconstructed images. One of the following dose optimization techniques was utilized in the performance of this exam: Automated exposure control; adjustment of the mA and/or kV according to the patient's size; or use of an iterative reconstruction technique. Specific details can be referenced in the facility's radiology CT exam operational policy. COMPARISON: Brain MRI and noncontrast head CT 08/03/2018 FINDINGS: There is mild age-appropriate parenchymal volume loss, with patchy low attenuation in the deep white matter compatible with chronic small vessel ischemic change. Intracranial vascular calcifications. Tiny punctate foci of acute ischemia in the posterior right parietooccipital lobe and in the left cerebellar hemisphere noted on the prior MRI are not vi sible on this noncontrast CT examination. No CT evidence of intracranial hemorrhage or mass effect. No midline shift or extra-axial fluid collections. Duque-white differentiation is maintained. Stable opacification of the left frontal sinus. Mild mucosal thickening in the left maxillary sinus. The paranasal sinuses and mastoid air cells are otherwise unopacified. No new osseous findings. IMPRESSION: 1. No CT evidence of acute intracranial pathology. 2. Tiny foci of acute ischemia noted on the recent prior MRI are not visible by CT. If there is clinical concern for new or progressive ischemia, repeat follow-up MRI could be performed. Report Dictated By: Wei Villalpando MD at 08/07/2018 5:27 PM Report E-Signed By: Wei Villalpando MD at 08/07/2018 5:37 PM WSN:[facility] ED Course/Re-evaluation Clinical Indication for ER IV: IV Access ED Course The patient was admitted to a room. A history and physical were obtained. Diffe rential diagnoses were considered. An IV was started. A CBC, CMP, PT and INR were obtained. Lab studies unremarkable, INR is subtherapeutic at 1.71. The patient was sent from cardiac rehabilitation for his hypertension, we did administer a total of 30 mg IV labetalol with no real improvement of blood pressure. The patient was also given 10 mg IV hydralazine. Patient had improvement of his blood pressure. As I was concerned with the elevated blood pressure and decreased strength with his left foot extension I did recommend a CT of the brain, the CT was negative for any acute intracranial abnormalities. I reviewed the results with the patient and his . They will relief. I did feel that this time the patient would be able to go home as he does have a follow-up appointment with his primary care provider tomorrow morning. They will reevaluate his blood pressure, his medications as well as his Coumadin. They will structured return to a year for any other concerns or worsening symptoms. Garima esposito both express understanding and they were discharged home. Decision to Disposition Date: Aug 07, 2018 Decision to Disposition Time: 19:26 Depart Departure Latest Vital Signs Vital Signs Date Time Temp Pulse Resp B/P (MAP) Pulse Ox O2 Delivery O2 Flow Rate FiO2 08/07/18 19:47 175/88 (117) 08/07/18 19:17 63 16 66 08/07/18 19:14 Room Air 08/07/18 16:44 97.8 Impression: Primary Impression: Hypertension Condition: Improved Disposition: HOME OR SELF-CARE Referrals: KARLIE SMILEY MD (PCP) 1 Day Patient Instructions: Hypertension (ED) Additional Instructions: Please follow up with Dr. Smiley tomorrow as scheduled. Drink plenty of water. Get plenty of rest. Take your medications as scheduled. Return to the ED for any other concerns or worsening symptoms. Problem Qualifiers Primary Impression: Hypertension Hypertension type: unspecified Qualified Codes: I10 - Essential (primary) hypertension LEOPOLDO LEES PATTERN MAKER PROGRAMER-BC Aug 07, 2018 16:44
[2018-08-07] MEDS ORDERED: LABETALOL HCL 20 MG/4 ML SYR IVP ONE ×2 (17:00→18:00)
[2018-08-07 17:13] LABS: PLATELET COUNT, AUTOMATED 285 K/uL (150-450)
[2018-08-07 17:22] LABS: INR 1.71
[2018-08-07] MEDS ORDERED: LABETALOL HCL 100 MG/20ML VIAL IVP ONE (17:25)
--- NOTE | 2018-08-07 17:30 | EKG ---
FACILITY: [facility] - [place] PATIENT NAME: ANGELA ISAAC : [id number] MR: [id number] V: [id number] EXAM DATE: ORDERING PHYSICIAN: LEOPOLDO LEES TECHNOLOGIST: CHRISTA Test Reason : HIGH BP Blood Pressure : / mmHG Vent. Rate : 067 BPM Atrial Rate : 067 BPM P-R Int : 232 ms QRS Dur : 150 ms QT Int : 446 ms P-R-T Axes : 045 034 057 degrees QTc Int : 471 ms Sinus rhythm with 1st degree AV block Left bundle branch block Abnormal ECG When compared with ECG of 03-AUG-2018 10:01, Nonspecific T wave abnormality, improved in Inferior leads Confirmed by PROMISE GUNN ([id number]) on 08/08/2018 6:27:52 AM Referred By: LEOPOLDO Confirmed By:PROMISE GUNN
--- NOTE | 2018-08-07 17:42 | RADIOLOGY IMAGING REPORT ---
FACILITY: [facility] PATIENT NAME: Jamey Parham : 1940 MR: [id number] V: [id number] EXAM DATE: ORDERING PHYSICIAN: LEOPOLDO LEES TECHNOLOGIST: Location: [facility] [place] Patient: Jamey Parham : 1940 Visit/Account:[id number] Date of Sevice: 08/07/2018 EXAMINATION: CT head without IV contrast HISTORY: History of stroke. Hypertension. Difficulty finding words. Decreased strength on the left . TECHNIQUE: Axial CT images of the head were obtained from the vertex to the skull base without IV c ontrast, with coronal and sagittal 2D reconstructed images. One of the following dose optimization techniques was utilized in the performance of this exam: Autom ated exposure control; adjustment of the mA and/or kV according to the patient's size; or use of an i terative reconstruction technique. Specific details can be referenced in the facility's radiology C T exam operational policy. COMPARISON: Brain MRI and noncontrast head CT 08/03/2018 FINDINGS: There is mild age-appropriate parenchymal volume loss, with patchy low attenuation in the deep white matter compatible with chronic small vessel ischemic change. Intracranial vascular calcifications. Tiny punctate foci of acute ischemia in the posterior right parietooccipital lobe and in the left cer ebellar hemisphere noted on the prior MRI are not visible on this noncontrast CT examination. No CT evidence of intracranial hemorrhage or mass effect. No midline shift or extra-axial fluid brayden ections. Duque-white differentiation is maintained. Stable opacification of the left frontal sinus. Mild mucosal thickening in the left maxillary sinus. The paranasal sinuses and mastoid air cells are otherwise unopacified. No new osseous findings. IMPRESSION: 1. No CT evidence of acute intracranial pathology. 2. Tiny foci of acute ischemia noted on the recent prior MRI are not visible by CT. If there is cli nical concern for new or progressive ischemia, repeat follow-up MRI could be performed. Report Dictated By: Wei Villalpando MD at 08/07/2018 5:27 PM Report E-Signed By: Wei Villalpando MD at 08/07/2018 5:37 PM WSN:[email or web address]
--- NOTE | 2018-08-07 18:07 | RADIOLOGY IMAGING REPORT ---
FACILITY: [facility] PATIENT NAME: Jamey Parham : 1940 MR: [id number] V: [id number] EXAM DATE: ORDERING PHYSICIAN: LEOPOLDO LEES TECHNOLOGIST: Location: [facility] [place] Patient: Jamey Parham : 1940 Visit/Account:[id number] Date of Sevice: 08/07/2018 Exam type: CHEST PA AND LAT History: htn, recent placement of cafeteria monitor Comparison: July 26, 2018. Findings: Again noted is mild hyperinflation lung bhatt with flattening the hemidiaphragms. There is no evide nce of focal infiltrates, pleural effusions or pulmonary edema. The cardiac silhouette appears walter l in size. monitoring engineer overlies the anterior left thorax. There are extensive spondylotic thacker es of the thoracic spine IMPRESSION: 1. Mild hyperinflation lung bhatt although no evidence of acute pulmonary consolidation Report Dictated By: Yulia Bacon MD at 08/07/2018 6:03 PM Report E-Signed By: Yulia Bacon MD at 08/07/2018 6:04 PM WSN:[email or web address]
[2018-08-07] MEDS ORDERED: LABETALOL HCL 100 MG/20ML VIAL ONE (18:11)
[2018-08-07] MEDS ORDERED: hydrALAZINE HCL 20 MG/ML VIAL IVP ONE (19:05)
[2018-08-07 19:47] VITALS: BP 175/88
[2018-08-08] MEDS ORDERED: LISI-362 PO (10:49)
[2018-08-11] MEDS ORDERED: UMEC62.5 INH (14:31)
[2018-08-24] MEDS ORDERED: WARF1TAB15 PO (10:08)
== END 2018-08-07 19:53 | disposition home or self-care (01) ==
LOC: ER 17:01
DX: I10 Essential (primary) hypertension (principal)
CPT/HCPCS: 70450; 71046; 85025; 85610; 85730; 93005; 96374; 96375; 96376; 99284; J0360; J3490; 82040; 82247; 82310; 82374; 82435; 82565; 82947; 84075; 84132; 84155; 84295; 84450; 84460; 84520

== ENCOUNTER → 2018-08-30 | Outpatient (CLI) | payer MEDICARE, OTHER ==
[~2018-08-30] MED LIST changes: +AMLO-111 PO; -AMLO-125 PO; +UMEC62.5 INH
[2018-08-30 09:09] LABS: INR 2.13
== END ==
LOC: LAB 08:46
PROVIDERS: ATTEND Emergency Medicine
DX: Z79.01 Long term (current) use of anticoagulants (principal)
CPT/HCPCS: 36415; 85610

== ENCOUNTER 2018-09-07 21:48 | Emergency (ER) | payer MEDICARE, OTHER ==
[~2018-09-07 21:48] MED LIST changes: -WARF5TAB23 PO
--- NOTE | 2018-09-07 21:58 | ER Report ---
History and Physical Time Seen By MD: 21:58 Hx. of Stated Complaint: PATIENT STATES HE CHECKED HIS BLOOD PRESSURE AT 2100 AND IT WAS 202/105, AT 2114 IT WAS 218/107, AND 2129 IT WAS 218/210. HE REPORTS TAKING HIS HS BLOOD PRESSURE MEDICATION AT 2114 HPI/ROS CHIEF COMPLAINT: elevated blood pressure. HISTORY OF PRESENT ILLNESS: This is an 78 year old male. He had several very elevated blood pressures tonight. No symptoms of headache, dizziness, chest pain, shortness of breath. No weakness or numbness in face or extremities. No confusion. Currently having evaluation with cardiology for blood pressure issues and wearing a heart monitor. He is on Lisinopril 20mg twice a day. No missed medicines. Has been on Amlodipine 5mg in the past, but discontinued because of low blood pressure and dizziness. Has had CVA in the past. No fevers, chills or recent illness. Otherwise feels fine. Allergies: Coded Allergies: No Known Drug Allergies (Verified , 09/07/18) verified by pt 01/13/2018 Home Meds Active Scripts Lovastatin (LOVASTATIN) 40 Mg Tablet, 1 TAB PO QDAY, #90 TAB 4 Refills Prov:KARLIE REYES MD 07/26/18 Tamsulosin Hcl (TAMSULOSIN HCL) 0.4 Mg Cap.er.24h, 1 CAP PO DAILY, #90 TAB 3 Refills Prov:KARLIE REYES MD 07/26/18 Meclizine Hcl (MECLIZINE HCL) 25 Mg Tablet, 25 MG PO Q6-8H PRN for DIZZINESS, #30 TAB Prov:SILKE WATT DO 05/25/18 Reported Medications Oxygen (OXYGEN) Inha, 3 L INH HS, L 09/07/18 Lisinopril (LISINOPRIL) 20 Mg Tablet, 20 MG PO BID, TAB 09/07/18 Warfarin Sodium (WARFARIN SODIUM) 5 Mg Tablet, 1 MG PO QDAY, TAB 09/07/18 Fluticasone Prop 50 Mcg Ns (FLONASE 50 MCG NS) 16 Gm [place].susp, 2 SPRAYS NS QDAY, BOT 07/26/18 Cetirizine Hcl (ZYRTEC) 10 Mg Tablet, 1 TAB PO HS, TAB 01/13/18 Cholecalciferol (Vitamin D3) (VITAMIN D) 1,000 Unit Capsule, 1 CAP PO DAILY, CAPSULE 2/28/17 Discontinued Scripts Warfarin Sodium (WARFARIN SODIUM) 1 Mg Tablet, 1 MG PO QDAY, #156 TAB 1 Refill [place] 2 MG, M 1 MG, Tu 3 MG, W 2 MG, Th 2 MG, F 1 MG, Sa 2 MG Prov:MITCHELL MARADIAGA MD 08/24/18 Umeclidinium [place] (Incruse Ellipta) 62.5 Mcg Blst.w.dev, 1 EACH INH DAILY, #30 EACH 0 Refills Prov:KARLIE REYES MD 08/11/18 Lisinopril (LISINOPRIL) 10 Mg Tablet, 2 TAB PO BID, #180 TAB 3 Refills Prov:KARLIE REYES MD 08/08/18 Oxygen (OXYGEN) Inha, 2 L INH QHS, #1 L Prov:KARLIE REYES MD 07/26/18 Reviewed Nurses Notes: Yes Hx Smoking: No Smoking Status: Never Smoker Hx Substance Use Disorder: No Hx Alcohol Use: Yes Constitutional Vital Sign - Last 24 Hours 09/07/18 09/07/18 09/07/18 09/07/18 21:48 21:51 21:54 22:00 Temp 97.4 Pulse ??? 70 Resp 14 B/P (MAP) 207/97 207/97 (133) 198/85 (122) Pulse Ox 91 O2 Delivery Room Air 09/07/18 09/07/18 09/07/18 09/07/18 22:18 22:30 22:48 23:00 Pulse 68 68 B/P (MAP) 190/89 (122) 176/86 (116) Pulse Ox 93 90 09/07/18 09/07/18 09/07/18 09/07/18 23:05 23:15 23:25 23:30 Pulse 62 ??? 66 B/P (MAP) 163/81 (108) Pulse Ox 89 90 90 09/07/18 09/07/18 09/07/18 09/08/18 23:35 23:45 23:55 00:00 Pulse 64 59 63 B/P (MAP) 174/80 (111) 175/95 (121) Pulse Ox 90 94 89 09/08/18 09/08/18 09/08/18 09/08/18 00:15 00:25 00:30 00:35 Pulse 65 66 66 64 B/P (MAP) 170/91 (117) 180/85 (116) Pulse Ox 90 89 86 89 09/08/18 00:40 Pulse ??? Pulse Ox 89 Physical Exam General Appearance: The patient is alert. No acute distress. Eyes: Pupils are equal, round. Reactive to light. No pallor, injection or icterus. Extraocular movements are intact. No nystagmus. ENT: Mucous membranes are moist. Normal oral mucosa. Posterior oropharynx is normal. Normal tympanic membranes and canals. Neck: Supple and non tender. No lymphadenopathy. Respiratory: Lungs are clear to auscultation. Cardiovascular: Regular rate and rhythm. No murmurs, gallops or rubs. Normal capillary refill. No edema. Gastrointestinal: Abdomen is soft and non tender. Nondistended. Normal active bowel sounds. No costovertebral angle tenderness with percussion. Neurological: Alert and oriented x3. Cranial nerves II through XII show no acute deficits on my exam. No focal neurologic deficits in the extremities. Skin: Warm and dry. No rashes. Musculoskeletal: Extremities are nontender. No tenderness in palpation of the ce rvical, thoracic and lumbar spine. DIFFERENTIAL DIAGNOSIS: After history and physical exam, differential diagnosis was considered for hypertensive urgency with significant elevation of blood pressure, but asymptomatic. Medical Decision Making Data Points Result Diagram: 09/07/183 09/07/18 2223 Laboratory Hematology Test 09/07/18 22:23 09/07/18 23:23 Red Blood Count 4.70 M/uL (4.00-5.60) Mean Corpuscular Volume 92.9 fL (80.0-96.0) Mean Corpuscular Hemoglobin 31.9 pg (26.0-33.0) Mean Corpuscular Hemoglobin Concent 34.4 g/dL (32.0-36.0) Red Cell Distribution Width 13.7 % (11.5-14.5) Mean Platelet Volume 7.4 fL (7.2-11.1) Neutrophils (%) (Auto) 64.7 % (39.4-72.5) Lymphocytes (%) (Auto) 21.1 % (17.6-49.6) Monocytes (%) (Auto) 10.1 % (4.1-12.4) Eosinophils (%) (Auto) 3.7 % (0.4-6.7) Basophils (%) (Auto) 0.4 % (0.3-1.4) Nucleated RBC Relative Count (auto) 0.0 /100WBC Neutrophils # (Auto) 4.3 K/uL (2.0-7.4) Lymphocytes # (Auto) 1.4 K/uL (1.3-3.6) Monocytes # (Auto) 0.7 K/uL (0.3-1.0) Eosinophils # (Auto) 0.2 K/uL (0.0-0.5) Basophils # (Auto) 0.0 K/uL (0.0-0.1) Nucleated RBC Absolute Count (auto) 0.00 K/uL Prothrombin Time 27.3 seconds (12.0-14.4) Prothromb Time International Ratio 2.48 Sodium Level 133 mmol/L (137-145) Potassium Level 4.3 mmol/L (3.5-5.0) Chloride Level 97 mmol/L (98-107) Carbon Dioxide Level 30 mmol/L (22-30) Blood Urea Nitrogen 15 mg/dl (9-21) Creatinine 1.20 mg/dl (0.66-1.25) Glomerular Filtration Rate Calc 58.3 Random Glucose 95 mg/dl (75-110) Calcium Level 9.0 mg/dl (8.4-10.2) Total Bilirubin 0.5 mg/dl (0.2-1.3) Aspartate Amino Transf (AST/SGOT) 21 U/L (0-35) Alanine Aminotransferase (ALT/SGPT) 32 U/L (0-56) Alkaline Phosphatase 49 U/L (0-126) Troponin I < 0.012 ng/ml Total Protein 6.3 g/dl (6.3-8.2) Albumin 3.8 g/dl (3.5-5.0) Urine Color Straw Urine Clarity Clear Urine pH 7.0 pH (4.8-9.5) Urine Specific [place] 1.004 Urine Protein Negative mg/dL (NEGATIVE) Urine Glucose (UA) Negative mg/dL (NEGATIVE) Urine Ketones Negative mg/dL (NEGATIVE) Urine Blood Negative (NEGATIVE) Urine Nitrite Negative (NEGATIVE) Urine Bilirubin Negative (NEGATIVE) Urine Urobilinogen Negative mg/dL (0.2-1.9) Urine Leukocyte Esterase Negative (NEGATIVE) Urine RBC <1 /HPF (0-2/HPF) Urine WBC <1 /HPF (0-5/HPF) Urine Squamous Epithelial Cells None /LPF (</=FEW) Urine Bacteria Negative /HPF (NONE-FEW) Urine Mucus None /HPF (NONE-FEW) Chemistry Test 09/07/18 22:23 09/07/18 23:23 White Blood Count 6.6 k/uL (4.5-11.0) Red Blood Count 4.70 M/uL (4.00-5.60) Hemoglobin 15.0 g/dL (14.0-18.0) Hematocrit 43.6 % (42.0-52.0) Mean Corpuscular Volume 92.9 fL (80.0-96.0) Mean Corpuscular Hemoglobin 31.9 pg (26.0-33.0) Mean Corpuscular Hemoglobin Concent 34.4 g/dL (32.0-36.0) Red Cell Distribution Width 13.7 % (11.5-14.5) Platelet Count 266 K/uL (150-450) Mean Platelet Volume 7.4 fL (7.2-11.1) Neutrophils (%) (Auto) 64.7 % (39.4-72.5) Lymphocytes (%) (Auto) 21.1 % (17.6-49.6) Monocytes (%) (Auto) 10.1 % (4.1-12.4) Eosinophils (%) (Auto) 3.7 % (0.4-6.7) Basophils (%) (Auto) 0.4 % (0.3-1.4) Nucleated RBC Relative Count (auto) 0.0 /100WBC Neutrophils # (Auto) 4.3 K/uL (2.0-7.4) Lymphocytes # (Auto) 1.4 K/uL (1.3-3.6) Monocytes # (Auto) 0.7 K/uL (0.3-1.0) Eosinophils # (Auto) 0.2 K/uL (0.0-0.5) Basophils # (Auto) 0.0 K/uL (0.0-0.1) Nucleated RBC Absolute Count (auto) 0.00 K/uL Prothrombin Time 27.3 seconds (12.0-14.4) Prothromb Time International Ratio 2.48 Glomerular Filtration Rate Calc 58.3 Calcium Level 9.0 mg/dl (8.4-10.2) Total Bilirubin 0.5 mg/dl (0.2-1.3) Aspartate Amino Transf (AST/SGOT) 21 U/L (0-35) Alanine Aminotransferase (ALT/SGPT) 32 U/L (0-56) Alkaline Phosphatase 49 U/L (0-126) Troponin I < 0.012 ng/ml Total Protein 6.3 g/dl (6.3-8.2) Albumin 3.8 g/dl (3.5-5.0) Urine Color Straw Urine Clarity Clear Urine pH 7.0 pH (4.8-9.5) Urine Specific [place] 1.004 Urine Protein Negative mg/dL (NEGATIVE) Urine Glucose (UA) Negative mg/dL (NEGATIVE) Urine Ketones Negative mg/dL (NEGATIVE) Urine Blood Negative (NEGATIVE) Urine Nitrite Negative (NEGATIVE) Urine Bilirubin Negative (NEGATIVE) Urine Urobilinogen Negative mg/dL (0.2-1.9) Urine Leukocyte Esterase Negative (NEGATIVE) Urine RBC <1 /HPF (0-2/HPF) Urine WBC <1 /HPF (0-5/HPF) Urine Squamous Epithelial Cells None /LPF (</=FEW) Urine Bacteria Negative /HPF (NONE-FEW) Urine Mucus None /HPF (NONE-FEW) Coagulation Test 09/07/18 22:23 Prothrombin Time 27.3 seconds Prothromb Time International Ratio 2.48 Urinalysis Test 09/07/18 23:23 Urine Color Straw Urine Clarity Clear Urine pH 7.0 pH (4.8-9.5) Urine Specific [place] 1.004 Urine Protein Negative mg/dL (NEGATIVE) Urine Glucose (UA) Negative mg/dL (NEGATIVE) Urine Ketones Negative mg/dL (NEGATIVE) Urine Blood Negative (NEGATIVE) Urine Nitrite Negative (NEGATIVE) Urine Bilirubin Negative (NEGATIVE) Urine Urobilinogen Negative mg/dL (0.2-1.9) Urine Leukocyte Esterase Negative (NEGATIVE) Urine RBC <1 /HPF (0-2/HPF) Urine WBC <1 /HPF (0-5/HPF) Urine Squamous Epithelial Cells None /LPF (</=FEW) Urine Bacteria Negative /HPF (NONE-FEW) Urine Mucus None /HPF (NONE-FEW) EKG/Imaging EKG Interpretation 12 lead EKG: Rhythm: Normal sinus rhythm with first-degree AV block, rate 65 [place]: Left QRS: Left bundle branch block ST segments: Otherwise negative Imaging EXAMINATION: Chest radiograph HISTORY: Elevated blood pressure COMPARISON: 08/07/2018 FINDINGS: Frontal view obtained. Lines/tubes: None. Cardiomediastinal silhouette: Normal. Lungs/pleura: Normal. Bony structures/chest wall: No significant abnormality. IMPRESSION: No acute finding. Report Dictated By: Link Jordan MD at 09/07/2018 11:38 PM ED Course/Re-evaluation Clinical Indication for ER IV: IV Access ED Course Labs, EKG and imaging done, negative as noted above. Given Labetalol 20mg IV, good reduction in blood pressure. Still asymptomatic. 100mg Labetalol oral dose and follow-up as planned with cardiology tomorrow. Decision to Disposition Date: Sep 08, 2018 Decision to Disposition Time: 00:34 Depart Departure Latest Vital Signs Vital Signs Date Time Temp Pulse Resp B/P (MAP) Pulse Ox O2 Delivery O2 Flow Rate FiO2 09/08/18 00:40 ??? 89 09/08/18 00:30 180/85 (116) 09/07/18 21:51 97.4 14 Room Air Impression: Primary Impression: Elevated blood pressure reading Condition: Improved Disposition: HOME OR SELF-CARE Referrals: KARLIE REYES MD (PCP) Patient Instructions: Hypertension (ED) Additional Instructions: Follow-up with cardiology as planned tomorrow morning. No changes in your medicine right now. We have given you blood pressure medicine to keep the blood pressure at a safe level for tonight. Return if needed for worsening symptoms, chest pain, shortness of breath, or weakness/stroke symptoms. ADI MCCONNELL MD Sep 07, 2018 21:58
[2018-09-07] MEDS ORDERED: OXYGENHOME INH (22:05)
[2018-09-07] MEDS ORDERED: WARF5TAB23 PO (22:05)
[2018-09-07] MEDS ORDERED: LISI20TA29 PO (22:05)
[2018-09-07] MEDS ORDERED: LABETALOL HCL 20 MG/4 ML SYR IVP ONE (22:15)
[2018-09-07 22:30] LABS: PLATELET COUNT, AUTOMATED 266 K/uL (150-450)
[2018-09-07 22:40] LABS: INR 2.48
--- NOTE | 2018-09-07 23:42 | RADIOLOGY IMAGING REPORT ---
FACILITY: [facility] - [place], [place] PATIENT NAME: Jamey Parham : 1940 MR: [id number] V: [id number] EXAM DATE: ORDERING PHYSICIAN: ADI MCCONNELL TECHNOLOGIST: Location: [facility] Patient: Jamey Parham : 1940 Visit/Account:[id number] Date of Sevice: 09/07/2018 EXAMINATION: Chest radiograph HISTORY: Elevated blood pressure COMPARISON: 08/07/2018 FINDINGS: Frontal view obtained. Lines/tubes: None. Cardiomediastinal silhouette: Normal. Lungs/pleura: Normal. Bony structures/chest wall: No significant abnormality. IMPRESSION: No acute finding. Report Dictated By: Link Jordan MD at 09/07/2018 11:38 PM Report E-Signed By: Link Jordan MD at 09/07/2018 11:39 PM WSN:[id number]
[2018-09-07] MEDS ORDERED: LABETALOL HCL 100 MG TAB PO ONE (23:45)
[2018-09-08 00:30] VITALS: BP 180/85
--- NOTE | 2018-09-08 01:21 | EKG ---
FACILITY: PATIENT NAME: ANGELA ISAAC : [id number] MR: [id number] V: [id number] EXAM DATE: ORDERING PHYSICIAN: ADI MCCONNELL TECHNOLOGIST: GEOVANNI Euceda Reason : Blood Pressure : / mmHG Vent. Rate : 065 BPM Atrial Rate : 065 BPM P-R Int : 224 ms QRS Dur : 154 ms QT Int : 444 ms P-R-T Axes : 017 040 081 degrees QTc Int : 461 ms Sinus rhythm with 1st degree AV block Left bundle branch block Abnormal ECG Confirmed by MERLIN WEST ([id number]) on 09/08/2018 3:12:10 AM Referred By: Confirmed By:MERLIN WEST
== END 2018-09-08 00:53 | disposition home or self-care (01) ==
LOC: ER 21:56
DX: R03.0 Elevated blood-pressure reading, without diagnosis of hypertension (principal); I44.7 Left bundle-branch block, unspecified; I44.0 Atrioventricular block, first degree
CPT/HCPCS: 71045; 81001; 84484; 85025; 85610; 93005; 96374; 99284; A9270; J3490; 82040; 82247; 82310; 82374; 82435; 82565; 82947; 84075; 84132; 84155; 84295; 84450; 84460; 84520

== ENCOUNTER → 2018-09-07 | Outpatient (CLI) | payer MEDICARE, OTHER ==
[~2018-09-07] MED LIST changes: -AMLO-111 PO; +AMLO-125 PO; +WARF5TAB23 PO
--- NOTE | 2018-09-07 11:44 | RADIOLOGY IMAGING REPORT ---
FACILITY: [facility] PATIENT NAME: Jamey Parham : 1940 MR: [id number] V: [id number] EXAM DATE: ORDERING PHYSICIAN: KARLIE REYES TECHNOLOGIST: Location: [facility] [place] Patient: Jamey Parham : 1940 Visit/Account:[id number] Date of Sevice: 09/07/2018 Exam type: US ARTERIAL RENAL DUPX DOPPLER History: Hypertension Comparison: None. Findings: The right kidney measures 11.29 x 5.21 x 5.38 cm and is of normal echogenicity without evidence of hy dronephrosis. Vascular evaluation of the right kidney with reported resistive indices is as follows Right superior pole, arcuate artery 0.63, interlobar artery 0.59, segmental artery 0.65 Mid right kidney arcuate artery 0.56, interlobar artery 0.62, segmental artery 0.64 Inferior Pole right kidney arcuate artery 0.61, interlobar artery 0.59, segmental artery 0.66 Right renal artery proximal 0.71, mid 0.74 distal 0.62. The peak systolic velocity in the distal right renal artery is 46.5 cm/s in the proximal right renal artery 149 cm/s, in the mid right renal artery 144 cm/s. Right renal artery/aorta ratio at the kidney is 0.276 and at the aorta is 0.887 The left kidney measures 11.15 x 4.97 x 4.28 cm and is of normal echogenicity with no evidence of hyd ronephrosis. Vascular evaluation of the left kidney with reported resistive indices is as follows: Left superior pole arcuate artery 0.62, interlobar artery 0.62, segmental artery 0.58 Left mid kidney arcuate artery 0.55, interlobar artery 0.57, segmental artery 0.55 Left inferior Pole arcuate artery 0.57, interlobar artery 0.53, segmental artery 0.62 Left renal artery proximal 0.76 mid 0.74 in distal 0.60 The peak systolic velocity in the proximal left renal artery is 140 cm/s mid left renal artery 103 cm /s and distal left renal artery 28.2 cm/s. The left renal artery/aortic ratio is 0.168 at the kidney and 0.833 at the aorta IMPRESSION: 1. There is no evidence of elevated resistive indices nor elevated peak systolic velocities within t he kidneys. Report Dictated By: Yulia Bacon MD at 09/07/2018 11:30 AM Report E-Signed By: Yluia Bacon MD at 09/07/2018 11:39 AM WSN:[email or web address]
== END ==
LOC: US 00:37
PROVIDERS: ATTEND Emergency Medicine
DX: I10 Essential (primary) hypertension (principal)
CPT/HCPCS: 93975

== ENCOUNTER → 2018-09-18 | Outpatient (CLI) | payer MEDICARE, OTHER ==
[~2018-09-18] MED LIST changes: +WARF5TAB23 PO
[2018-09-18 10:11] LABS: INR 2.57
== END ==
LOC: LAB 09:42
PROVIDERS: ATTEND Emergency Medicine
DX: Z51.81 Encounter for therapeutic drug level monitoring (principal); Z79.01 Long term (current) use of anticoagulants
CPT/HCPCS: 36415; 85610

== ENCOUNTER → 2018-10-12 | Outpatient (CLI) | payer MEDICARE, OTHER ==
[~2018-10-12] MED LIST changes: +DIA5 PO; +SPIR50TA33 PO; +UMEC62.5
== END ==
LOC: LAB 14:27
PROVIDERS: ATTEND Internal Medicine Cardiovascular Disease
DX: I10 Essential (primary) hypertension (principal)
CPT/HCPCS: 82310; 82374; 82435; 82565; 82947; 84132; 84295; 84520

== ENCOUNTER → 2018-10-12 | Outpatient (CLI) | payer MEDICARE, OTHER | LOC: LAB 14:15 | PROVIDERS: ATTEND Psychiatry & Neurology Neurology | DX: I63.9 Cerebral infarction, unspecified (principal) | CPT/HCPCS: 36415; 82306; 82607; 82746 ==

== ENCOUNTER → 2018-10-16 | Outpatient (CLI) | payer MEDICARE, OTHER ==
--- NOTE | 2018-10-16 13:52 | RADIOLOGY IMAGING REPORT ---
FACILITY: [facility] - [place] PATIENT NAME: Jamey Parham : 1940 MR: [id number] V: [id number] EXAM DATE: ORDERING PHYSICIAN: OLAYINKA SORENSEN TECHNOLOGIST: Location: [facility] Patient: Jamey Parham : 1940 Visit/Account:[id number] Date of Sevice: 10/16/2018 EXAMINATION: MRI Brain without intravenous contrast HISTORY: Stroke. COMPARISON: Brain MRI dated 08/03/2018. TECHNIQUE: Multi-planar, multi-sequence brain MRI was performed without IV contrast administration. FINDINGS: Brain volume: Normal. Sagittal midline structures: Negative. Ventricles: Negative. Acute ischemic changes: None. Hemorrhage: None. Masses / edema: None. Duque-white: Negative. White matter: Stable mild chronic microvascular ischemic changes. Vessels: Negative. Extra-axial: Negative. Calvarium / scalp: Negative. Skull base: Negative. Visualized sinuses / orbits: Completely opacified left frontal sinus. Partially opacified anterior e thmoid air cells. Mild mucosal thickening in left maxillary sinus. No significant change. Visualized upper neck: Negative. IMPRESSION: 1. No acute intracranial abnormality. 2. Stable mild chronic microvascular ischemic changes. 3. Stable paranasal sinus disease with complete opacification of the left frontal sinus. Report Dictated By: Jarrell Boateng MD at 10/16/2018 1:44 PM Report E-Signed By: Jarrell Boateng MD at 10/16/2018 1:48 PM WSN:[email or web address]
== END ==
LOC: MRI 00:34
PROVIDERS: ATTEND Psychiatry & Neurology Neurology
DX: I67.82 Cerebral ischemia (principal); J32.4 Chronic pansinusitis
CPT/HCPCS: 70551

== ENCOUNTER → 2018-10-19 | Outpatient (CLI) | payer MEDICARE, OTHER ==
[2018-10-19 11:29] LABS: INR 2.68
== END ==
LOC: LAB 10:46
PROVIDERS: ATTEND Emergency Medicine
DX: Z51.81 Encounter for therapeutic drug level monitoring (principal); Z79.01 Long term (current) use of anticoagulants
CPT/HCPCS: 36415; 85610

== ENCOUNTER → 2018-10-20 | Outpatient (CLI) | payer MEDICARE, OTHER | LOC: RESP 06:01 | PROVIDERS: ATTEND Psychiatry & Neurology Neurology | DX: R41.82 Altered mental status, unspecified (principal) | CPT/HCPCS: 95819 ==

== ENCOUNTER 2018-10-23 14:18 | Outpatient (RCR) | payer MEDICARE, OTHER ==
[2018-08-28 14:12] VITALS: BP 197/86
--- NOTE | 2018-09-04 03:28 | ONCOLOGY CONSULTATION ---
EVENT DATE: August 28, 2018 CHIEF COMPLAINT/REASON FOR VISIT Mr. Parham is a pleasant 78-year-old gentleman who has suffered multiple strokes in the last six months, including those that occurred on Coumadin. There is concern for embolic strokes; however, the patient has no obvious source, including extensive workup on the heart. He has not yet established with Neurology. HISTORY OF PRESENT ILLNESS Mr. Parham presents to discuss the role of anticoagulation in the multiple embolic strokes in the last six months. By report, he has not yet seen Neurology. While he feels well during the visit today, his blood pressure was noted to be extremely high at 197/86. He states that he is taking his lisinopril. We very likely need to get more aggressive on this as his etiology for strokes may simply be hypertensive crisis, leading to spasm or local blockages of blood vessels with thrombosis and then subsequent appearance of emboli. Extensive workup of the carotids and heart has reportedly been done and is unrevealing. There is concern that he could have some abnormality in the body that is triggering this, and while possible, that is not a very likely finding. Typically speaking, we would also see evidence of a patent foramen ovale on the echocardiogram, and by report this is not the case. I do plan to review outside records which are not available to me at this moment in more detail. I also think it is critical that he establish with Neurology urgently. He continues on his Coumadin, and this is the most important thing to do at this time in terms of preventing recurrent events. He also needs to follow up with Dr. Smiley closely and work to control his blood pressure potentially better if he is having intermittent spikes of blood pressure. PAST MEDICAL HISTORY 1. Osteoarthritis. 2. Cataracts. 3. Hypertension. 4. COPD, moderate, recently diagnosed. 5. Distant history of squamous skin cancer. 6. TIA and stroke in 2009, discovered by imaging working up vertigo and sinusitis, as well as in April and July 2018. SOCIAL HISTORY Patient is and is presented with his today. 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 He has a daughter aged 48 and a son that at age 49. Rare alcohol use. No tobacco use or other drug use. FAMILY HISTORY Remarkable for cancer in the family, unknown type, including the son who has . REVIEW OF SYSTEMS CONSTITUTIONAL: No fevers, chills, or significant weight change. HEENT: No headache or visual changes. The patient has had episodes of vertigo, which does raise concern that there are emboli affecting the posterior circulation as well. CARDIOVASCULAR: Negative. LUNGS: No shortness of breath, wheeze, or cough. GASTROINTESTINAL: No nausea or vomiting. GENITOURINARY: No dysuria or hematuria. MUSCULOSKELETAL: No weakness or joint pains. PSYCHIATRIC: No anxiety or depression. ENDOCRINE: No heat or cold intolerance. NEUROLOGIC: Currently no focal deficits. He is improved nearly 100% since these events. A 14-point review of systems is otherwise negative. PHYSICAL EXAMINATION VITAL SIGNS: Blood pressure alarmingly elevated at 197/86, pulse 69, respiratory rate 16, temperature 96.5 Fahrenheit, oxygen saturation 94% on room air. Weight 102.1 kg, pain 0/10, fatigue 0/10. Low fall risk. GENERAL: Stable condition. Resting comfortably in the chair. No headache. Able to answer questions appropriately. No concerns with his blood pressure and his general physical exam to suggest hypertensive crisis at this moment. CARDIOVASCULAR: Regular rate and rhythm. LUNGS: Clear. ABDOMEN: Soft, nontender. No organomegaly or masses. EXTREMITIES: Without clubbing, cyanosis, or edema. PSYCHIATRIC: Normal mood and affect. Remainder of physical examination negative. IMPRESSION/REPORT/PLAN Mr. Parham is a pleasant 78-year-old gentleman with the followin. Recurrent embolic stroke. Differential diagnosis includes an occult source for these strokes that was not seen in the evaluation of the heart. He could be having intermittent arrhythmia even though the monitor was unremarkable. I believe a neurology consultation to further work up the etiology of stroke is very important. I think it is appropriate for him to continue the Coumadin, as he needs to be on anticoagulation. 2. Severe hypertension. He needs to follow up with Dr. Smiley for adjustments in blood pressure management, and this may be part of the cause for the strokes. Unfortunately, I do not find anything in history or exam that I feel has been missed thus far. He needs to continue anticoagulation, control his blood pressure, and establish with Neurology. If we do not find an etiology for these strokes, indefinite anticoagulation would be most appropriate, as he has had multiple events. Answered all their questions today. BILLING New patient, level 4. Total time 40 minutes, counseling time 30. MTDD
[2018-10-23 14:22] VITALS: BP 154/74
--- NOTE | 2018-10-24 06:08 | ONCOLOGY FOLLOW UP NOTE ---
EVENT DATE: October 23, 2018 CHIEF COMPLAINT/REASON FOR VISIT Mr. Parham is a pleasant 78-year-old gentleman who has suffered multiple strokes in the past year, including some that occurred on Coumadin. I believe there is a hypertensive crisis/small-vessel disease component to these events. Extensive workup did not reveal a source for embolic stroke. HISTORY OF PRESENT ILLNESS Mr. Parham returns. 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 His blood pressure was extremely elevated at our initial visit at 197/86. He just began to take lisinopril at that time. He has added a diuretic as well under the care of Dr. Loaiza. I was concerned about hypertensive crisis/vasospasm. Extensive workup of the carotids and the heart has been negative. We did not see a patent foramen ovale on echocardiogram. Ever since his blood pressures have been under better control with the addition of blood pressure medication, he has been doing much better. As far as he knows, he has not had an event since I saw him in August. He continues with Coumadin. We had entertained prior and during that visit to switch to a novel oral anticoagulant, but I do not believe that this was actually a failure of anticoagulation at this point. Discussed this in detail with him and his and answered all their questions today. PAST MEDICAL HISTORY 1. Osteoarthritis. 2. Cataracts. 3. Hypertension. 4. COPD, moderate, recently diagnosed. 5. Distant history of squamous skin cancer. 6. TIA and stroke in 2009, discovered by imaging working up vertigo and sinusitis, as well as in April and July 2018. SOCIAL HISTORY Patient is and is presented with his today. 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 He has a daughter aged 48 and a son that at age 49. Rare alcohol use. No tobacco use or other drug use. FAMILY HISTORY Remarkable for cancer in the family, unknown type, including the son who has . REVIEW OF SYSTEMS CONSTITUTIONAL: No fevers, chills, or significant weight change. HEENT: No headache or visual changes. The patient has had episodes of vertigo, which does raise concern that there are emboli affecting the posterior circulation as well. CARDIOVASCULAR: Negative. LUNGS: No shortness of breath, wheeze, or cough. GASTROINTESTINAL: No nausea or vomiting. GENITOURINARY: No dysuria or hematuria. MUSCULOSKELETAL: No weakness or joint pains. PSYCHIATRIC: No anxiety or depression. ENDOCRINE: No heat or cold intolerance. NEUROLOGIC: Currently no focal deficits. He is improved nearly 100% since these events. A 14-point review of systems is otherwise negative. PHYSICAL EXAMINATION VITAL SIGNS: Blood pressure 154/74, which is an improvement but still slightly high. Pulse 66, respiratory rate 16, temperature 96.8 Fahrenheit, oxygen saturation 95% on room air. Weight 102.3 kg and stable, pain 0/10, fatigue 0/10. GENERAL: Stable condition. Resting comfortably in the chair. No organomegaly or masses. EXTREMITIES: Without clubbing, cyanosis, or edema. NEUROLOGIC: No deficits, which is very encouraging. PSYCHIATRIC: Normal mood and affect. Remainder of physical examination deferred today due to amount of time spent in counseling and coordination of care. IMPRESSION/REPORT/PLAN Mr. Parham is a pleasant 78-year-old gentleman with the following: * Recurrent stroke. I believe that it is appropriate for him to continue anticoagulation indefinitely, given the multiple events. However, I think Coumadin is appropriate. I also believe that his severe hypertension is now being appropriately managed, and this is the reason we have not had issues in the last two months. It is possible that he could still have episodes of hypertensive crisis, as he is still hypertensive in the clinic today despite blood pressure medication. Recommend close followup with Dr. Smiley with adjustments of these medications as needed. I believe I could see him annually to make sure there is nothing we need to do differently, but I do not see any additional workup required at this time. Answered all their questions today. BILLING Return visit level 3. Total time 20 minutes, counseling time 15. MTDD
== END 2018-11-23 ==
LOC: ONC 14:18
PROVIDERS: ATTEND Internal Medicine
DX: I63.443 Cerebral infarction due to embolism of bilateral cerebellar arteries (principal); I10 Essential (primary) hypertension; J44.9 Chronic obstructive pulmonary disease, unspecified; Z86.73 Personal history of transient ischemic attack (TIA), and cerebral infarction without residual deficits; Z79.01 Long term (current) use of anticoagulants
CPT/HCPCS: G0463 ×2; 99202; 99212

== ENCOUNTER → 2018-10-30 | Outpatient (RCR) | payer MEDICARE, OTHER ==
--- NOTE | 2018-08-02 07:56 | PT INITIAL EVALUATION ---
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 He had subsequent mini-stroke in May. Jamey notes his LE's are weaker, he isn't doing long community ambulation, stair use is difficult, his balance and coordination are diminished a but denies falls. Jamey relates he's working with his doctor on leveling out his BP with medicine. He's right-handed. He has chronic LBP but doesn't focus on it. REHAB PROBLEM LIST: Decreased Strength, Impaired Transfers, Decreased Balance, Altered Function, Decreased Mobility, Altered Gait PREVIOUS MEDICAL HISTORY: B feet neuropathy, lumbar OA/stenosis, B TKA, B CTR, R elbow surgery. MRI on May 25 is positive for embolic infarct of the anterior limb of the left internal capsule, peripherally in the right occipital lobe, and in the right cerebellum and 2 areas in the left cerebellum. 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 OBJECTIVE: Posture: Heels 8" apart, steady, head midline. Strength: R LE 4/5 quad, hamstring 5-/5, ankle DF 5-/5, gastroc. 3/5. L LE 5-5/ except hamstring 4+/5. Emergency Room Orderly strength, Jaylen dynamometer, R 75, 94, 85#, L 80, 80, 82#. Sensation: Diminished protective sensation "G" at the R 2nd and 3rd finger tips, otherwise reduced light touch sensation the rest of the fingertips, Chardon- Elida monofilament testing Special Tests: VOR x1 WNL, eye tracking with mild skips to the R visual hz. field. Mobility: Sit to stand from 19" height in 3 attempts with legs against the mat table Gait: Functional gait assessment , a 43% impairment. Jamey turns with R fore foot scuffing, ,3 seconds. He ambulates with fore foot scuffing, B, diminished R arm swing, feet passing each other. He climbs stairs with handrail, reciprocating gait. Balance: Lee Balance Assessment 43/56, a 23% impairment, a fall risk with community ambulation. Tandem stand 2 seconds B. No single limb support. Cerebellar rapid movements diminished with both hands. Foot coordination diminished L>R foot. Static stand on foam with retro balance disturbance with eyes closed, increased postural sway with eyes open. Other Objective Findings: Jamey had mild word finding difficulty and word switching several times during the session. ASSESSMENT: Jamey Parham presents with weakness, dis-coordination, fall risk, altered balance and eye tracking after his CVA's. He may benefit from an OT and speech evaluation. Short Term Goals 4 weeks: Jamey turns and ambulates without fore foot scuffing, descends stairs carrying objects with balance control, reciprocating gait. 8 weeks: Jamey walks over uneven surfaces with corrective balance reactions Patient's Goals Improve balance, strengthen legs for control with descending stairs, walk the dog over uneven surfaces. PLAN: Patient to be seen for Strengthening/condition, Stretching, Neuromuscular Re-ed, Gait Trg/Balance Trg, Home Exercise Program 2x/Week for 2 Months Thank you for this referral. If you have any questions, comments, or concerns about this report or plan, please contact me at . LEXYD
--- NOTE | 2018-09-12 15:35 | PT PLAN OF CARE ---
Physician: Dr. Montse Smiley Patient is being seen: 2x/week Therapist: Helen Merritt, PT Medical Diagnosis: I63.9 Stroke Treatment Diagnosis: Altered gait and balance, weakness Date of Onset: 04/28/18 Date of Initial Evaluation: 08/01/18 Date patient was last seen: 09/08/18 Number of treatments: 10 Number of cancellations/No shows: 2 INTERVENTIONS: Strengthening/condition Stretching Neuromuscular Re-ed Gait Trg/Balance Trg Home Exercise Program GOALS: 4 weeks: Jamey turns and ambulates without fore foot scuffing (progressing), descends stairs carrying objects with balance control, reciprocating gait (progressing). 8 weeks: Jamey walks over uneven surfaces with corrective balance reactions. (not met) PATIENT'S GOAL: Improve balance (progressing), strengthen legs for control with descending stairs (progressing), walk the dog over uneven surfaces (not met). Patient Compliance: Excellent Prognosis: Excellent Reasons for continuing therapy: S: Jamey continues to fluctuate BP. He hasn't walked the dog and isn't carrying items downstairs yet. Posture: Heels 4" apart, steady, head midline. Strength: R single leg squat 30 deg., L 25 degrees. Gait: Functional Gait Assessment improved to 26, a 13% impairment. Jamey has less frequent fore foot scuffing during gait, turns with balance control. Special Tests: Still eye tracking with mild skips to the R visual hz. field. Single leg stand R 2 sec. still, L 8 sec. now. Mobility: Sit to stand from 19" height in 1 attempts independently. A/P: Jamey Parham in improving gait and balance, needs to continue gait training, strengthening, working dynamic balance for gait over uneven surfaces and also to integrate his vestibular ocular system. If you agree, we'll continue 2x/week 6 weeks to goals set.. MTDD
--- NOTE | 2018-09-29 10:14 | NUR ---
[facility] rec'd information that the patient's application for assistance with Pradaxa was denied because the patient is over income. [facility] attempted to contact the patient but had to leave a message.
--- NOTE | 2018-10-24 14:34 | PT PLAN OF CARE ---
Physician: Dr. Montse Smiley Patient is being seen: 2x/week Therapist: Helen Merritt, PT Medical Diagnosis: I63.9 Stroke Treatment Diagnosis: Altered gait and balance, weakness Date of Onset: 04/28/18 Date of Initial Evaluation: 08/01/18 Date patient was last seen: 10/19/18 Number of treatments: 21 Number of cancellations/No shows: [*] INTERVENTIONS: Strengthening/condition Stretching Neuromuscular Re-ed Gait Trg/Balance Trg Home Exercise Program GOALS: 4 weeks: Jamey turns and ambulates without fore foot scuffing (met), descends stairs carrying objects with balance control, reciprocating gait (progressing). 8 weeks: Jamey walks over uneven surfaces with corrective balance reactions. (progressing) PATIENT'S GOAL: (All progressing) Improve balance, strengthen legs for control with descending stairs, walk the dog over uneven surfaces. Patient Compliance: Excellent Prognosis: Excellent Reasons for continuing therapy: S: Jamey relates he's feeling more steady with balance but with community settings does have balance difficulties. He isn't carrying items downstairs yet. Posture: Heels 4" apart, steady, head midline. Strength: Double leg squat to 110 degrees. L Tib. anterior 4+/5. Gait: Functional Gait Assessment . Six minute walk test O2 95%, HR 137, 1667, within norms for an 78 y/o man. Balance: Retro balance loss with dynamic standing balance exercises, stepping reflex now present, able to cross midline. Dynamic balance exercises with cognitive challenge with missed sequencing and LOB. Single leg stand 1-3 seconds, L and R. Mobility: Sit to stand from 19" height in 1 attempt. A/P: Jamey Parham is making good gains in endurance, needs to strengthen his ankle DF's, quads to help retro balance control, and is still a fall risk on uneven surfaces. If you agree, we'll continue 2x/week, 6 weeks to goals set. Thank you. MANPREET
== END ==
LOC: PT 08-01 15:50
PROVIDERS: ATTEND Emergency Medicine
DX: I63.9 Cerebral infarction, unspecified (principal); R53.1 Weakness
CPT/HCPCS: 97162

== ENCOUNTER → 2018-11-16 | Outpatient (CLI) | payer MEDICARE, OTHER ==
[2018-11-16 11:02] LABS: INR 2.56
== END ==
LOC: LAB 10:14
PROVIDERS: ATTEND Emergency Medicine
DX: Z51.81 Encounter for therapeutic drug level monitoring (principal); Z79.01 Long term (current) use of anticoagulants
CPT/HCPCS: 36415; 85610

== ENCOUNTER 2018-12-08 11:21 | Outpatient (RCR) | payer MEDICARE, OTHER ==
--- NOTE | 2018-11-08 13:07 | PT PLAN OF CARE ---
Physician: Dr. Montse Smiley Patient is being seen: 2x/week Therapist: Helen Merritt, PT Medical Diagnosis: I63.9 Stroke Treatment Diagnosis: Altered gait and balance, weakness Date of Onset: 04/28/18 Date of Initial Evaluation: 08/01/18 Date patient was last seen: 11/08/18 Number of treatments: 25 Number of cancellations/No shows: 0 INTERVENTIONS: Strengthening/condition Stretching Neuromuscular Re-ed Gait Trg/Balance Trg Home Exercise Program GOALS: 4 weeks: Jamey turns and ambulates without fore foot scuffing (met), descends stairs carrying objects with balance control, reciprocating gait (progressing). 8 weeks: Jamey walks over uneven surfaces with corrective balance reactions. (progressing) PATIENT'S GOAL: (All progressing) Improve balance, strengthen legs for control with descending stairs, walk the dog over uneven surfaces. Patient Compliance: Excellent Prognosis: Excellent Reasons for continuing therapy: S: Jamey relates he's walked carefully on ice and snow without a problem, has slowly descended stairs with a light object in his hands but was uncomfortable with that. Posture: Heels 4" apart, steady, head midline. Strength: Normal eccentric quad control descending stairs. Balance/Gait: Lee Balance Assessment 56/56. Functional Gait Assessment 29/30, with weaving with head motion. Stepping reactions present but several LOB with turning, when distracted. Mobility: Sit to stand from 19" height in 1 attempt. Stair use carrying 15 lbs. with hand near the handrail. A/P: Jamey Parham is improving gait, has LOB when distracted. If you agree, we'll continue 2x/week through November with cognitive challenges during balance training, gait outdoors. Thank you. MANPREET
--- NOTE | 2018-12-08 12:50 | PT PLAN OF CARE ---
Physician: Dr. Montse Smiley Patient is being seen: 2x/week Therapist: Helen Merritt, PT Medical Diagnosis: I63.9 Stroke Treatment Diagnosis: Altered gait and balance, weakness Date of Onset: 04/28/18 Date of Initial Evaluation: 08/01/18 Date patient was last seen: 12/08/18 Number of treatments: 34 Number of cancellations/No shows: 0 INTERVENTIONS: Strengthening/condition, Stretching, Neuromuscular Re-ed, Gait Trg/Balance Trg, Gym Exercise Program GOALS: 4 weeks: Jamey turns and ambulates without fore foot scuffing (met), descends stairs carrying objects with balance control, reciprocating gait (met). 8 weeks: Jamey walks over uneven surfaces with corrective balance reactions. (met) PATIENT'S GOAL: (All met) Improve balance, strengthen legs for control with descending stairs, walk the dog over uneven surfaces. Patient Compliance: Excellent Prognosis: Excellent Reasons for discontinuing therapy: S: Jamey relates he's now working out at the [employer]. He denies falls, carries items downstairs with control with handrail. O: Posture: Heels together, steady, head midline. Strength: Quads R 105#, L 100#, a beginner level for men. 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 Balance: Lee Balance Assessment was 56/56 last month and Functional Gait Assessment 29/30. Jamey demonstrates corrective balance reactions on uneven surfaces and with cognitive challenge. Mobility: Independent from low surfaces. A/P: Jamey Parham has improved gait, balance, strength. 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 I'll DC PT to gym exercise. Thank you. MANPREET
== END 2018-12-08 18:00 | disposition home or self-care (01) ==
LOC: PT 11:21
PROVIDERS: ATTEND Emergency Medicine
DX: I63.9 Cerebral infarction, unspecified (principal); R53.1 Weakness; R26.89 Other abnormalities of gait and mobility

== ENCOUNTER → 2018-12-18 | Outpatient (CLI) | payer MEDICARE, OTHER ==
[2018-12-18 11:19] LABS: INR 2.63
== END ==
LOC: LAB 10:11
PROVIDERS: ATTEND Emergency Medicine
DX: Z79.01 Long term (current) use of anticoagulants (principal)
CPT/HCPCS: 36415; 85610

== ENCOUNTER → 2019-01-22 | Outpatient (CLI) | payer MEDICARE, OTHER ==
[~2019-01-22] MED LIST changes: +GABA-549 PO
== END ==
LOC: LAB 10:39
PROVIDERS: ATTEND Emergency Medicine
DX: I10 Essential (primary) hypertension (principal)
CPT/HCPCS: 36415; 82310; 82374; 82435; 82565; 82947; 84132; 84295; 84520

== ENCOUNTER → 2019-02-15 | Outpatient (CLI) | payer MEDICARE, OTHER ==
[2019-02-15 14:40] LABS: INR 2.31
== END ==
LOC: LAB 13:56
PROVIDERS: ATTEND Emergency Medicine
DX: Z51.81 Encounter for therapeutic drug level monitoring (principal); Z79.01 Long term (current) use of anticoagulants
CPT/HCPCS: 36415; 85610